=== PATIENT | female | born 1955 | race Caucasian/White ===

== ENCOUNTER 2020-02-26 10:26 | Outpatient (CLI) | payer MEDICARE, SELFPAY ==
--- NOTE | ~2020-02-26 | MM_ITS ---
EXAMINATION: MM screening [facility] BI w toney HISTORY: Screening mammogram TECHNIQUE: Craniocaudal and mediolateral oblique 3-D tomosynthesis images were obtained and synthetic 2-D images were generated. CAD analysis was submitted and interpreted. COMPARISON: 10/24/2018, 10/24/2017, 10/13/2016 BREAST PARENCHYMAL COMPOSITION: There are scattered areas of fibroglandular density. FINDINGS: There is no evidence of suspicious mass, calcification, or architectural distortion to sugg est malignancy in either breast. There has been no suspicious interval change. IMPRESSION: 1. No mammographic evidence of malignancy. 2. Recommend routine screening mammography in one year. BI-RADS Category 1: Negative Reviewed, dictated and finalized at location A.
== END 2020-02-26 10:27 | disposition home or self-care (01) ==
PROVIDERS: PCP Internal Medicine; Visit Provider Nurse Practitioner Obstetrics & Gynecology
DX: Z12.31 Encounter for screening mammogram for malignant neoplasm of breast (principal)
CPT/HCPCS: 77063; 77067

== ENCOUNTER 2020-07-10 11:27 | Outpatient (CLI) | payer MEDICARE, SELFPAY | END 2020-07-10 11:28 | disposition home or self-care (01) | LOC: ANHCOVIDVC 11:28 | PROVIDERS: PCP Internal Medicine | DX: Z23 Encounter for immunization (principal) | CPT/HCPCS: 0001A; 91300 ==

== ENCOUNTER 2020-07-31 11:32 | Outpatient (CLI) | payer MEDICARE, SELFPAY | END 2020-07-31 11:33 | disposition home or self-care (01) | LOC: ANHCOVIDVC 11:32 | PROVIDERS: PCP Internal Medicine | DX: Z23 Encounter for immunization (principal) | CPT/HCPCS: 0002A; 91300 ==

== ENCOUNTER 2021-04-01 09:31 | Outpatient (CLI) | payer MEDICARE, SELFPAY ==
--- NOTE | ~2021-04-01 | MM_ITS ---
EXAMINATION: MM screening [facility] BI w toney HISTORY: Screening mammogram TECHNIQUE: Craniocaudal and mediolateral oblique 3-D tomosynthesis images were obtained and synthetic 2-D images were generated. CAD analysis was submitted and interpreted. COMPARISON: Serial mammograms dating back to 10/24/2017 BREAST PARENCHYMAL COMPOSITION: The breasts are almost entirely fatty. FINDINGS: There is no evidence of suspicious mass, calcification, or architectural distortion to sugg est malignancy in either breast. There has been no suspicious interval change. IMPRESSION: 1. No mammographic evidence of malignancy. 2. Recommend routine screening mammography in one year. BI-RADS Category 1: Negative Reviewed, dictated and finalized at location A. 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
== END 2021-04-01 09:32 | disposition home or self-care (01) ==
LOC: ANHIMG 09:34
PROVIDERS: PCP Internal Medicine; Visit Provider Obstetrics & Gynecology
DX: Z12.31 Encounter for screening mammogram for malignant neoplasm of breast (principal)
CPT/HCPCS: 77063; 77067

== ENCOUNTER 2021-10-04 15:15 | Outpatient (RCR) | payer MEDICARE, SELFPAY ==
--- NOTE | 2021-09-01 16:52 | PTOPEVAL ---
PHYSICAL THERAPY EVALUATION AND PLAN OF CAR E Thank you for referring Gena Chung to [facility].? The patient is scheduled to be seen for therapy? 1-4x/MONTH for 2 MONTHS. Please review, sign, date and return this plan of care MIKY. I agree with and certify that the following plan of care is medically necessary. Referring Physician Date Attending Provider: Doni Meier MD Diagnosis female genital prolapse Subjective Information Gena is here for diagnosis Query Text:As Reported By Patient/ of gential prolapse. She Family states today that she was told she has a mild prolapse. She has been experiencing leakage of urine, especially when she sneezes or coughs. Tells me that she has been progressively drinking less and less water and she does drink mostly water. Has pain in the right hip/ groin region and has for some time. She was participating in physical therapy for the left knee and the right groin and hip. She would feel some relief and then the pain would come back. States that when her FINISH INSPECTOR did a pelvic floor examination there was more tension and tenderness on the right side of the pelvic floor and there was suspician that pelvic floor was invloved. Self Report Pain Assessment Right Groin Reported Pain Level 4 Pain Description Sharp,Tightness Pain Frequency Chronic,Intermittent Pain Score Pain Score 4: Self Report Interventions Used Interventions Used By Clinicians Exercise,Joint Mobilization, Manual Therapy Techniques Lower Extremity Range of Motion General Lower Extremity Range of Motion Gross Lower Extremity Range of Motion right hip: limited ROM Comments secondary pain; limited passive flexion and cannot bring down to neutral extension in supine; -10deg from neutral resting in external rotation Lower Extremity Muscle Strength Testing General Lower Extremity Strength Gross Lower Extremity Strength right hip strength limited due to pain with resistance; able to perform bridges and h
--- NOTE | 2021-10-25 12:25 | PCPTNOTE ---
Patient called & cancelled scheduled appointment this date due to having a migraine. She will call back when she feels better.
--- NOTE | 2021-11-15 12:39 | PCPTNOTE ---
PHYSICAL THERAPY DISCHARGE NOTE Attending Provider: Doni Meier MD Patient:Gena Chung Date of :1955 Gena was seen in physical therapy to address pelvic and groin pain. She demonstrates significant impairment to right hip ROM and strength and reports significant pain. Her gait pattern is significantly impaired. I referred her back to physician for further imaging of the hip after 3 sessions of no significant change in function or symptoms. Imaging noted advanced right hip OA. Gena expressed to me quite clearly that she is not interested in surgery at this time. Gena has not returned for any further treatments since 10/04/2021, therefore she will be discharged at this time. Patient?s initial visit was on 09/01/2021 and had a total of 3 visits. Thank you for referring this patient to [facility]. Please review, sign, date and return this discharge summary MIKY. I have been updated about the patient's current status and I agree with discharge from the above service at this time. Referring Physician Date
== END 2021-11-15 12:54 | disposition home or self-care (01) ==
LOC: ANHPT 15:15
PROVIDERS: PCP Internal Medicine; Referring Provider Obstetrics & Gynecology; Visit Provider Obstetrics & Gynecology
DX: N81.89 Other female genital prolapse (principal)
CPT/HCPCS: 97110; 97112; 97140; 97163; 97530

== ENCOUNTER 2021-10-07 15:28 | Outpatient (CLI) | payer MEDICARE, SELFPAY ==
--- NOTE | ~2021-10-07 | XR_ITS ---
XR lumbar spine 2-3V DATE: 10/07/2021 16:20 INDICATION: Back pain, inability to stand up straight TECHNIQUE: Standing AP, lateral and coned lateral lumbosacral views COMPARISON: None FINDINGS: There is mild rotatory levoscoliosis of the lumbar spine. No fracture or bone destruction is evident. The lumbar pedicles are intact. There is severe degenerative disc disease at L1-2 and L5-S1, moderately severe degenerative disc dise ase at L2-3 and mild degenerative disc disease at L3-4 and L4-5. There is degenerative change of the facet joints with associated grade 1 anterolisthesis at L4-5. The sacroiliac joints are unremarkable other than degenerative change. Asymmetric severe right hip osteoarthritis. IMPRESSION: Mild rotatory levoscoliosis of the lumbar spine Multilevel degenerative disc disease Grade 1 anterolisthesis at L4-5 due to degenerative change at the apophyseal joints Reviewed, dictated and finalized at location A. IMPRESSION: Mild rotatory levoscoliosis of the lumbar spine Multilevel degenerative disc disease Grade 1 anterolisthesis at L4-5 due to degenerative change at the apophyseal vianney ints
--- NOTE | ~2021-10-07 | XR_ITS ---
EXAMINATION: XR hip RT min 2V DATE: 10/07/2021 16:21 INDICATION: Right groin pain. TECHNIQUE: 2 views of right hip were obtained. COMPARISON: Right hip radiographs 06/05/2017 FINDINGS: Bone alignment is normal. No fracture. There is advanced right hip osteoarthritis. Osteitis pubis is noted. IMPRESSION: 1. Advanced right hip osteoarthritis. Reviewed, dictated and finalized at location A.
== END 2021-10-07 15:29 | disposition home or self-care (01) ==
PROVIDERS: PCP Internal Medicine; Visit Provider Clinical Nurse Specialist
DX: M25.551 Pain in right hip (principal); M54.9 Dorsalgia, unspecified; M41.86 Other forms of scoliosis, lumbar region; M51.36 Other intervertebral disc degeneration, lumbar region; M43.16 Spondylolisthesis, lumbar region; M16.11 Unilateral primary osteoarthritis, right hip
CPT/HCPCS: 72100; 73502

== ENCOUNTER 2021-11-12 11:18 | Outpatient (CLI) | payer MEDICARE, SELFPAY ==
[2021-11-12 19:38] LABS: Anion Gap 8 mmol/L (8-16); Blood Urea Nitrogen 17 mg/dL (7-17); Calcium 9.4 mg/dL (8.4-10.2); Carbon Dioxide 29 mmol/L (22-30); Chloride 103 mmol/L (98-107); Estimated Glomerular Filt Rate > 60; Glucose 98 mg/dL (65-110); Potassium 3.7 mmol/L (3.4-5.0); Sodium 140 mmol/L (137-145)
[2021-11-12 19:43] LABS: Vitamin D 25 Hydroxy 40.6 ng/mL
[2021-11-12 20:06] LABS: Hemoglobin A1C 5.3 % (<5.7)
== END 2021-11-12 11:19 | disposition home or self-care (01) ==
LOC: ANHGOSHLAB 11:24
PROVIDERS: PCP Internal Medicine; Visit Provider Clinical Nurse Specialist
DX: I47.1 Supraventricular tachycardia (principal); E16.2 Hypoglycemia, unspecified; F41.9 Anxiety disorder, unspecified; E55.9 Vitamin D deficiency, unspecified
CPT/HCPCS: 36415; 80048; 82306; 83036; 84443

== ENCOUNTER 2021-12-03 09:32 | Outpatient (CLI) | payer MEDICARE, SELFPAY ==
--- NOTE | ~2021-12-03 | DEXA_ITS ---
Bone Density Report Name: JUICE ALEJANDRE Age: 66 Sex: Female Ethnicity: White Date of : 1955 Indication: postmenopausal; screening for osteoporosis; height loss; Referring Provider: VICKI BRANDON Study: Bone densitometry was performed. Exam Date: December 03, 2021 Accession number: [id number] Bone Density: Region BMD T-score Z-score Classification AP Spine(L1, L2, L3) 1.296 2.5 4.4 Normal Femoral Neck (Left) 0.735 -1.0 0.6 Normal Total Hip (Left) 0.923 -0.2 1.2 Normal World Health Organization criteria for BMD impression classify patients as: Normal (T-score at or above -1.0), Osteopenia (T-score between -1.0 and -2.5), or Osteoporosis (T-score at or below -2.5). 10-year Fracture Risk: FRAX not reported because: All T-scores for Spine Total, Hip Total, Femoral Neck at or above -1.0 Previous Exams: Region Exam Age BMD T-score BMD Change BMD Change Date g/cm2 vs Baseline vs Previous AP Spine (L1-L3) 12/03/2021 66 1.296 2.5 -0.003 (-0.2%) 0.007 (0.6%) 09/07/2015 59 1.289 2.5 -0.010 (-0.8%) -0.010 (-0.8%) 08/28/2012 56 1.299 2.6 Total Hip(Left) 12/03/2021 66 0.923 -0.2 -0.057 (-5.8%) -0.092 (-9.0%) 09/07/2015 59 1.015 0.6 0.035 (3.6%)# 0.035 (3.6%)# 08/28/2012 56 0.980 0.3 *Denotes significance at 95% confidence level, LSC for AP Spine = 0.022 g/cm2, LSC for Total Hip = 0.027 g/cm2 # Denotes dissimilar scan types or analysis methods Clinical Information Provided by Patient: Patient maximum height was 67 Menopause Age: 54 Onset of menses at age 11 Number of children 3 Impression: The patient has normal bone mass. The BMD for the Total Hip(Left) decreased, changing by -9.0% since the last DXA exam. Discussion: BONE DENSITY IS ABOVE THE MINIMUM DESIRABLE LEVEL AT ALL SKELETAL SITES TESTED. This patient?s bone mineral density is above the minimum desirable level (T-score -1.0 or better) at all sites measured. The patient should follow a healthful lifestyle (good nutrition with adequate calcium and vitamin D, and appropriate weight-bearing exercise). Follow-Up: Consider repeating this study in 3 to 4 years to reassess this patient's status, or sooner if there is some new clinical indication. Reported by: DARRIN on 12/03/2021 10:07:00 AM. Reviewed, dictated and finalized at location [facility]afael [facility]
== END 2021-12-03 09:33 | disposition home or self-care (01) ==
LOC: ANHIMG 09:33
PROVIDERS: PCP Internal Medicine; Visit Provider Clinical Nurse Specialist
DX: Z78.0 Asymptomatic menopausal state (principal)
CPT/HCPCS: 77080

== ENCOUNTER 2022-04-01 10:00 | Outpatient (RCR) | payer MEDICARE, SELFPAY ==
--- NOTE | 2022-01-07 15:21 | PTOPEVAL1 ---
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 She states her pelvis is so far forward now that she cannot stand up straight or reach her feet. She states prior to this she was able to walk miles and dance. She states she also has pain in her L knee and today her L foot. Pt states her pain moves, from her back, R hip, or R lower leg. Reported Pain Level Pain Score 1: Self Report Assessment PT Clinical Summary Gena presents to therapy today for her initial evaluation with a diagnosis of R hip pain. Today she demonstrates and presents viable pain during ambulation. In supine she is unable to extend her R hip to neutral and has to main ~20 degs of hip flexion, she is also limited to ~70 deg of hip flexion before she has to stop d/t pain. Muscle energy techniques were attempted today to aim to relieve pressure on the hip and SIJ. Gait and stairs ambulation was not assessed this day d/t high reports of pain. Skilled physical therapy services are indicated to address deficits noted above, to manage pain, to improve ROM, and to return to baseline function. Plan of Care Interventions Electrical Stimulation,Gait Training,Hot Pack/Cold Pack,Manual Therapy,Neuro Re-education,Patient/ Caregiver Educati,Therapeutic Activities, Therapeutic Exercise,Ultrasound PT Services Indicated Yes Treatment Frequency and 2x/wk for 4 wks or until goals are met Duration These treatments will address the objective and functional deficits as defined above. The patient will be advanced safely and appropriately in order for the patient to progress towards his/her prior level of function. Additional exercises will be introduced and as well as a comprehensive home exercise program upon discharge, if needed, ?to ensure carryover of functional gains achieved in the clinic. This treatment plan has been reviewed and agreement upon by the patient.
--- NOTE | 2022-01-14 11:59 | PCPTNOTE ---
Patient called to cancel due to being sick.
--- NOTE | 2022-02-04 11:41 | PTOPPROG ---
Assessment and note entered by Cuong Gaffney, PT, DPT Evaluation Information Assessment Status Progress Diagnosis R hip pain Onset 1 year Subjective Information Pt states overall she thinks things are improving. She states she knows her hip became arthritic over years and knows it will take years of therapy to fix it. Pt states on she was able to stand longer at work, with pain, but it was bearable. She states getting in/out of her car she must have moved wrong because it has hurt since. She states she still in not sleeping through the night. Pt states 1-2% improvement. Assessment PT Clinical Summary Gena presents to therapy today for her progress report following 7 visits of therapy to treat her R hip pain. Today she demonstrates improvements in both her passive hip flexion and extension but is still not within functional ranges. She continues to ambulate with a flexed posture d/t lack of hip extension and a R sided antalgic pattern. She requires increased time to complete the TUG and 5xSTS placing her at an increased risk of falls. She is also limited in how long she can sleep, sit , or stand d/t pain. Continuation of skilled physical therapy services are indicated to address the deficits noted above, to manage pain, to improve function, and to limit overall impairment. Plan of Care Interventions Electrical Stimulation,Gait Training,Hot Pack/Cold Pack,Manual Therapy,Neuro Re-education,Patient/ Caregiver Educati,Therapeutic Activities, Therapeutic Exercise,Ultrasound PT Services Indicated Yes Treatment Frequency and continue 2x/wk for 5 wks Duration These treatments will address the objective and functional deficits as defined above. The patient will be advanced safely and appropriately in order for the patient to progress towards his/her prior level of function. Additional exercises will be introduced and as well as a comprehensive home exercise program upon discharge, if needed, ?to ensure carryover of functional gains achieved in the clinic. This treatment plan has been reviewed and agreement upon by the patient.
--- NOTE | 2022-03-08 15:10 | PCPTNOTE ---
Patient called to cancel this date due to being sick.
--- NOTE | 2022-03-11 11:26 | PTOPPROG ---
Assessment and note entered by Cuong Gaffney, PT, DPT Evaluation Information Assessment Status Progress Diagnosis R hip pain and low back pain Onset 1 year Subjective Information Pt states her pain is a 1-2/10 today. She states she got new shoes and this has helped a little bit with the pressure on her back. Pt states she stood for a long time yesterday, she states her L foot started to hurt because she was putting so much weight on it. She states it is still really painful to put all her weight on her R hip. She states the longer she walks the worse her hip pain is. Assessment PT Clinical Summary Gena presents to therapy today for her progress report following 16 visits of skilled therapy to treat her diagnosis of R hip pain. Progress with therapy continues to be limited by pain and poor tolerance with general movement. Pt report increased LE numbness and pain with posterior pelvic tilts. She continues to lack the ability to stand upright with an erect posture due to pain and immobility of her R hip. It was recommended that patient follow up with her referring provider and possibly an orthopedic d/t her minimal progress with therapy. Continuation of skilled therapy is indicated to continue pain management and to help minimize compensations. Plan of Care Interventions Electrical Stimulation,Gait Training,Hot Pack/Cold Pack,Manual Therapy,Neuro Re-education,Patient/ Caregiver Educati,Therapeutic Activities, Therapeutic Exercise,Ultrasound PT Services Indicated Yes Treatment Frequency and 1x/wk for 6 wks Duration These treatments will address the objective and functional deficits as defined above. The patient will be advanced safely and appropriately in order for the patient to progress towards his/her prior level of function. Additional exercises will be introduced and as well as a comprehensive home exercise program upon discharge, if needed, ?to ensure carryover of functional gains achieved in the clinic. This treatment plan has been reviewed and agreement upon by the patient.
--- NOTE | 2022-03-15 09:12 | PCPTNOTE ---
Patient called and left a voicemail canceling appointment for this date due to weather.
--- NOTE | 2022-04-05 09:23 | PCPTNOTE ---
This treatment is being continued on visit number [id number]. Please see documentation on both accounts to view progress. Completed interventions, outcomes, and problems have been marked as Inactive to facilitate the copying of the Care plan routine for recurring accounts.
== END 2022-04-04 13:15 | disposition home or self-care (01) ==
LOC: ANHGOSHPT 10:00
PROVIDERS: PCP Internal Medicine; Visit Provider Clinical Nurse Specialist
DX: M54.9 Dorsalgia, unspecified (principal); M95.5 Acquired deformity of pelvis
CPT/HCPCS: 97110; 97112; 97116; 97140; 97161; 97530

== ENCOUNTER 2022-04-28 15:09 | Outpatient (RCR) | payer MEDICARE, SELFPAY ==
--- NOTE | 2022-04-05 09:24 | PCPTNOTE ---
The treatment documented on this account is a continuation of the treatment documented on visit number [id number]. Please see documentation on both accounts to view progress. The Plan of Care has been transitioned and updated within the new V#. I have addressed and agree with the discipline specific Problems, Interventions, and Goals for the current certification period. Completed interventions, outcomes, and problems have been marked as Inactive to facilitate the copying of the Care plan routine for recurring accounts.
--- NOTE | 2022-04-22 09:53 | PCPTNOTE ---
Patient called & cancelled scheduled appointment this date due to inclement weather. She has been rescheduled.
--- NOTE | 2022-04-28 12:33 | PTOPDC ---
Assessment and note entered by Cuong Gaffney, PT, DPT Evaluation Information Assessment Status Discharge Diagnosis R hip OA Onset chronic Subjective Information Pt states today and for the last few days she does not hurt much. She states she has been moving through exercise, not completing the same ones daily. Pt states she called her doctor and her provider said to keep doing therapy. Reported Pain Level Pain Score 1: Self Report Assessment PT Clinical Summary Gena presents to therapy today for her progress report following 20 visits of therapy to treat her R hip OA. She has made minimal progress throughout therapy. She has increased her active hip flexion from 70 deg to 76 deg, and still continues to lack 15 deg from neutral hip extension. She also has ~5 deg of passive hip abduction and adduction. She reports less pain with daily mobility and can ambulate at a mildly increased gait speed but continues to have significant gait deviations. Gena will be discharged at this time d/t poor therapy progression. It was recommended that she follow up with her referring provider and an orthopedic doctor prior to getting new orders to return to therapy. Plan of Care PT Services Indicated No Treatment Frequency and to be discharged Duration
== END 2022-04-28 15:52 | disposition home or self-care (01) ==
LOC: ANHGOSHPT 15:09
PROVIDERS: PCP Internal Medicine; Visit Provider Clinical Nurse Specialist
DX: M54.9 Dorsalgia, unspecified (principal); M95.5 Acquired deformity of pelvis
CPT/HCPCS: 97110; 97140; 97530; 99199

== ENCOUNTER 2022-07-29 08:41 | Outpatient (CLI) | payer MEDICARE, SELFPAY ==
--- NOTE | ~2022-07-29 | MM_ITS ---
EXAMINATION: MM screening [facility] BI w toney HISTORY: Screening TECHNIQUE: Craniocaudal and mediolateral oblique 3-D tomosynthesis images were obtained and synthetic 2-D images were generated. CAD analysis was submitted and interpreted. COMPARISON: Comparison to multiple prior studies sequentially, with oldest reviewed study dated 12/2015. BREAST PARENCHYMAL COMPOSITION: There are scattered areas of fibroglandular density. FINDINGS: There is no evidence of suspicious mass, calcification, or architectural distortion to sugg est malignancy in either breast. There has been no suspicious interval change. IMPRESSION: 1. No mammographic evidence of malignancy. 2. Recommend routine screening mammography in one year. BI-RADS Category 1: Negative Reviewed, dictated and finalized at location A.
== END 2022-07-29 08:42 | disposition home or self-care (01) ==
LOC: ANHIMG 08:44
PROVIDERS: PCP Internal Medicine; Visit Provider Clinical Nurse Specialist
DX: Z12.31 Encounter for screening mammogram for malignant neoplasm of breast (principal)
CPT/HCPCS: 77063; 77067

== ENCOUNTER 2023-08-11 08:40 | Outpatient (CLI) | payer MEDICARE, SELFPAY ==
--- NOTE | ~2023-08-11 | MM_ITS ---
EXAMINATION: MM screening [facility] BI w toney HISTORY: Screening TECHNIQUE: Craniocaudal and mediolateral oblique 3-D tomosynthesis images were obtained and synthetic 2-D images were generated. CAD analysis was submitted and interpreted. COMPARISON: Comparison to multiple prior studies sequentially, with oldest reviewed study dated 06/2020. BREAST PARENCHYMAL COMPOSITION: Not dense: There are scattered areas of fibroglandular density. FINDINGS: There is no evidence of suspicious mass, calcification, or architectural distortion to sugg est malignancy in either breast. There has been no suspicious interval change. IMPRESSION: 1. No mammographic evidence of malignancy. 2. Recommend routine screening mammography in one year. BI-RADS Category 1: Negative Reviewed, dictated and finalized at location A.
== END 2023-08-11 08:41 | disposition home or self-care (01) ==
LOC: ANHIMG 08:42
PROVIDERS: PCP Internal Medicine; Visit Provider Nurse Practitioner Family
DX: Z12.31 Encounter for screening mammogram for malignant neoplasm of breast (principal)
CPT/HCPCS: 77063; 77067

== ENCOUNTER 2023-10-04 16:19 | Outpatient (CLI) | payer MEDICARE, SELFPAY ==
--- NOTE | ~2023-10-04 | XR_ITS ---
XR hip RT min 2V Ordering provider: Mariusz Garcia, DO History: . Acute rt hip pain . Comparison: October 07, 2021 FINDINGS: BONES: Sclerotic line is seen in the neck of the femur which may represent a fracture. CT evaluation advised. HIP JOINT SPACES: Severe narrowing of the joint space. SACROILIAC JOINT SPACES/LUMBAR SPINE: Right sacroiliitis seen. . SOFT TISSUES: Normal. IMPRESSION: Sclerotic line is seen in the neck of the femur which may represent a fracture. CT evaluation advised . Severe osteoarthritic changes. Reviewed, dictated and finalized at location A. IMPRESSION: Sclerotic line is seen in the neck of the femur which may represent a fracture. CT evaluation advised. Severe osteoarthritic changes.
== END 2023-10-04 16:20 | disposition home or self-care (01) ==
LOC: ANHIMG 16:24
PROVIDERS: PCP Internal Medicine; Visit Provider Orthopaedic Surgery
DX: M25.551 Pain in right hip (principal)
CPT/HCPCS: 73502

== ENCOUNTER 2024-08-16 08:06 | Outpatient (CLI) | payer MEDICARE, SELFPAY ==
--- NOTE | ~2024-08-16 | DEXA_ITS ---
Bone Density Report Name: JUICE ALEJANDRE Age: 68 Sex: Female Ethnicity: White Date of : 1955 Indication: postmenopausal; screening for osteoporosis; Referring Provider: MARYJO LA Study: Bone densitometry was performed. Exam Date: August 16, 2024 Accession number: [id number] Bone Density: Region BMD T-score Z-score Classification AP Spine(L1-L4) 1.275 2.1 4.2 Normal Femoral Neck (Left) 0.706 -1.3 0.5 Osteopenia Total Hip (Left) 0.862 -0.7 0.8 Normal World Health Organization criteria for BMD impression classify patients as: Normal (T-score at or above -1.0), Osteopenia (T-score between -1.0 and -2.5), or Osteoporosis (T-score at or below -2.5). 10-year Fracture Risk(1): Major Osteoporotic Fracture 9.3% Hip Fracture 1.1% Reported Risk Factors: [place] (), Neck BMD=0.706, BMI=27.8 (1) FRAX(R) Version 3.08. Fracture probability calculated for an untreated patient. Fracture probability may be lower if the patient has received treatment. Previous Exams: Region Exam Age BMD T-score BMD Change BMD Change Date g/cm2 vs Baseline vs Previous AP Spine (L1-L4) 08/16/2024 68 1.275 2.1 -0.120 (-8.6%) -0.120 (-8.6%) 08/28/2012 56 1.395 3.2 Total Hip(Left) 08/16/2024 68 0.862 -0.7 -0.118 (-12.0% -0.061 (-6.6%) 12/03/2021 66 0.923 -0.2 -0.057 (-5.8%) -0.092 (-9.0%) 09/07/2015 59 1.015 0.6 0.035 (3.6%)# 0.035 (3.6%)# 08/28/2012 56 0.980 0.3 *Denotes significance at 95% confidence level, LSC for AP Spine = 0.022 g/cm2, LSC for Total Hip = 0.027 g/cm2 # Denotes dissimilar scan types or analysis methods Clinical Information Provided by Patient: Has used the following medications: Vitamin D Patient maximum height was 65 Menopause Age: 54 No regular weight bearing exercise Onset of menses at age 11 Number of children 3 Impression: The patient has low bone mass, based on the Left Femoral Neck T-score. The patient has an estimated ten-year risk of hip fracture of 1.1% and an estimated ten-year risk of major fracture of 9.3%, based on the WHO FRAX algorithm. The BMD for the Total Hip(Left) decreased, changing by -6.6% since the last DXA exam. Discussion: BONE DENSITY IS LOW AT ONE OR MORE SKELETAL SITES. This patient's lowest T-score is low at one or more skeletal sites. It meets the World Health Organization's (WHO) criteria for ?low bone mass? (T-score between -1.0 and -2.5). The patient's 10-year risk of fracture as calculated by FRAX is less than the threshold where pharmacological therapy is recommended by the National Osteoporosis Foundation (NOF). However, all treatment decisions require clinical judgment and consideration of individual patient factors, including patient preferences, comorbidities, previous drug use, risk factors not captured in the FRAX model (e.g., frailty, falls, vitamin D deficiency, increased bone turnover, interval significant decline in bone density) and possible under or overestimation of fracture risk by FRAX. The patient should follow a healthful lifestyle (good nutrition with adequate calcium and vitamin D, and appropriate weight-bearing exercise). Follow-Up: Consider repeating this study in 2 years to reassess this patient's status, or sooner if there is some new clinical indication. Reported by: DARRIN on 08/16/2024 8:45:00 AM. Reviewed, dictated and finalized at location ARafael ROBB
--- NOTE | ~2024-08-16 | MM_ITS ---
EXAMINATION: MM screening ambar BI w toney HISTORY: Screening TECHNIQUE: Craniocaudal and mediolateral oblique 3-D tomosynthesis images were obtained and synthetic 2-D images were generated. CAD analysis was submitted and interpreted. COMPARISON: Comparison to multiple prior studies sequentially, with oldest reviewed study dated 10/24. BREAST PARENCHYMAL COMPOSITION: Not dense: There are scattered areas of fibroglandular density. FINDINGS: There is no evidence of suspicious mass, calcification, or architectural distortion to sugg est malignancy in either breast. There has been no suspicious interval change. IMPRESSION: 1. No mammographic evidence of malignancy. 2. Recommend routine screening mammography in one year. BI-RADS Category 1: Negative Reviewed, dictated and finalized at location B.
--- OUTSIDE RECORDS SUMMARY | 2024-08-16 08:16 | XMS_ITS | Encounter Summary ---
Author Organization [facility] Address [facility] [place] [address] Care Team Providers Care Director Work Name Role Phone Jay Durham MD Primary Care Provider [phone] Encounter Details Date Type Department Care Team (Latest Contact Info) Description 06/17/[address] [facility] - [place] [address] [address] [place] [address] Jay Durham MD [address] [place] [address] [address] [place] [address] possible x-ray please Social History Tobacco Use Types Packs/Day Years Used Date Smoking Tobacco: Never Smokeless Tobacco: Never Comments:Counseled by Dr. Jennie altman Alcohol Use Standard Drinks/Week Comments Never 0 (1 standard drink = 0.6 oz pur e alcohol) OASIS D0700: Social Isolation Answer Da te Recorded Frequency of experiencing loneliness or isolatio n Never 12/20/2023 OASIS A1250: Transportation Answer Date Recorded Lack of Transportation (Medical) No 12/20/2023 Lack of Transportation (Non-Medical) No 12/20/2023 Patient Unable or Declines to Respond No 12/20/2023 OASIS B1300: Health Literacy Answer Oziel e Recorded Frequency of needing help to read materials from doctor or pharmacy Rarely 12/20/2023 PHQ-2 Answer Date Recorded Patient Health Questionnaire-2 Score 0 09/20/2023 Comments No Sex and Gender Information Value Date Recorded Sex Assigned at Female 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 Answer Date of Assessment Author Status No 11/28/2023 6:00 PM ALANT Lindsay Mulligan RN Active * Do you have serious difficulty walking or climbing stairs? Answer Date of Assessment Author Status Yes 11/28/2023 6:00 PM ALANT Lindsay Mulligan RN Active * Do you have difficulty dressing or bathing? Answer Date of Assessment Author Status Yes 11/28/2023 6:00 PM ALANT Lindsay Mulligan RN Active * Because of a physical, mental, or emotional condition, do you have difficulty doing errands alone such as visiting a doctor's office or shopping? Answer Date of Assessment Author Status Yes 11/28/2023 6:00 PM ALANT Lindsay Mulligan RN Active documented as of this encounter Mental Status * Because of a physical, mental, or emotional condition, do you have serious difficulty concentrating, remembering, or making decisions? Answer Entry Date Author Status No 11/28/2023 6:00 PM Lindsay Sky RN Active documented in this encounter Plan of Treatment Upcoming Encounters Date Type Department Care Team (Late st Contact Info) Description 09/06/2024 10:20 AM CDT Office Visit [facility] [place] [address] [address] [place] [address] Jay Durham MD [address] [place] [id number] 10/07/2024 3:20 PM CDT Office Visit [facility] Orthopedic Surgery - [place] [address] [address] [place] [address] [place] [address] [place] [address] documented as of this encounter Visit Diagnoses Not on filedocumented in this encounter Care Teams Director Work Relationship Specialty Start Date End Date Jay Durham MD [address] [facility] [address] [place] [address] PCP - General INTERNAL MEDICINE 03/16/23 documented as of this encounter
--- OUTSIDE RECORDS SUMMARY | 2024-08-16 08:16 | XMS_ITS | Encounter Summary ---
Author Organization [facility] - [facility] Address [address] [place] [address] Care Team Providers Care Harpsichord Maker Name Role Phone Jay Durham MD Primary Care Provider [phone] Encounter Details Date Type Department Care Team (Latest Contact Info) Description 11/20/2023 MyChart Message Enc [facility] Medical Group Multispecialty Care - [place] [address] [address] [place], [place] [id number] Jay Durham MD [address] [place] [address] EKG , Dr. Chang and [facility] Social History Tobacco Use Types Packs/Day Years Used Date Smoking Tobacco: Never Smokeless Tobacco: Never Comments:Counseled by Dr. Schneider ate Alcohol Use Standard Drinks/Week Comments Never 0 (1 standard drink = 0.6 oz pur e alcohol) PHQ-2 Answer Date Recorded Patient Health Questionnaire-2 Score 0 09/20/2023 Comments No Sex and Gender Information Value Date Recorded Sex Assigned at Female 06/28/2024 12:07 PM MULTILITH OPERATOR Legal Sex Female 5:26 PM CDT Gender Identity Not on file Sexual Orientation Not on file documented as of this encounter Plan of Treatment Upcoming Encounters Date Type Department Care Team (Late st Contact Info) Description 09/06/2024 10:20 AM CDT Office Visit [facility] Multispecialty Care - [place] [address] [address] [place] [address] Jay Durham MD [address] [place] [address] 10/07/2024 3:20 PM CDT Office Visit [facility] Orthopedic Surgery - [place] [address] [place], [place] [id number] [place] [address] [place] [address] documented as of this encounter Visit Diagnoses Not on filedocumented in this encounter Care Teams Harpsichord Maker Relationship Specialty Start Date End Date Jay Durham MD [address] [place] [address] PCP - General INTERNAL MEDICINE 03/16/23 documented as of this encounter
--- OUTSIDE RECORDS SUMMARY | 2024-08-16 08:16 | XMS_ITS | Encounter Summary ---
Author Organization [facility] Address [address] [place] [address] Care Team Providers Care Lead Manufacturing Technician Name Role Phone Jay Durham MD Primary Care Provider [phone] Encounter Details Date Type Department Care Team (Late Contact Info) Description 11/23/2023 Cumulocityhart Message Enc [facility] Orthopedic Surgery[address] [address] Mychart, [facility] Provider Cardiac Clearance Social History Tobacco Use Types Packs/Day Years Used Date Smoking Tobacco: Never Smokeless Tobacco: Never Comments:Counseled by Dr. 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 Legal Sex Female 5:26 PM CDT Gender Identity Not on file Sexual Orientation Not on file documented as of this encounter Plan of Treatment Upcoming Encounters Date Type Department Care Team (Late Contact Info) Description 09/06/2024 10:20 AM CDT [facility] [address] [place] [address] Jay Durham MD [address] [facility] [address] [place] [address] 10/07/2024 3:20 PM CDT Office Visit [facility] Medical Group Orthopedic Surgery - [place] [address] [place], [place] [id number] [place] [address] [place] [address] documented as of this encounter Visit Diagnoses Not on filedocumented in this encounter Care Teams Lead Manufacturing Technician Relationship Specialty Start Date End Date Jay Durham MD [address] [place] [address] PCP - General INTERNAL MEDICINE 03/16/23 documented as of this encounter
--- OUTSIDE RECORDS SUMMARY | 2024-08-16 08:16 | XMS_ITS | Clinical Summary ---
Author Organization [facility] [employer] Address [address] [place] [address] Care Team Providers Care Professor Of Graphic Design Name Role Phone Yuval Tenorio MD Primary Care Provider [phone] Source Comments [facility] [employer],non-[facility] Affiliates and Associated Physician Practices is amultiple site organization consisting of ambulatory clinics and hospital sitesin [place], [place], [place] and [place]. This disclosure is being madepursuant to the Care Everywhere program and may not contain all information available regarding this patient. Last updated 18.[facility] [employer] Allergies Active Allergy Reactions Criticality Noted Date Comments Amoxicillin Rash Medium 04/06/2017 As child Metoprolol Other 07/28/2017 Penicillins Urticaria Medium 07/28/2017 Prednisone Swelling 07/28/2017 Medications * Be aware that medications may not be up to date on this document. Alwaysverify current medications with the patient. MULTIPLE VITAMIN PO Active verapamil SR 24hr (VERELAN) 120 MG capsule Take 120 mg by mouth once daily Active Active Problems Problem Noted Date Diagnosed Date Tachycardia 09/03/2018 Family History Medical History Relation Name Comments CAD (Coronary Artery Disease) Father Cancer - Ovarian Mother Relation Name Status Comments Father Mother Social History Tobacco Use Types Packs/Day Years Used Date Smoking Tobacco: Never Smokeless Tobacco: Never Comments No Sex and Gender Information Value Date Recorded Sex Assigned at Not on file Legal Sex Female 4:20 PM CDT Gender Identity Not on file Sexual Orientation Not on file Last Filed Vital Signs Vital Sign Reading Time Taken Comments Blood Pressure 142/88 09/03/2018 10:47 AM CDT Pulse 88 09/03/2018 10:47 AM CDT Temperature 36.8 C (98.3 F) 09/03/2018 10:47 AM CDT Respiratory Rate 16 09/03/2018 10:47 AM CDT Oxygen Saturation 99% 09/03/2018 10:47 AM CDT Inhaled Oxygen Concentration - - Weight 81.6 kg (180 lb) 09/03/2018 10:47 AM CDT Height 167.6 cm (5' 6 ) 09/03/2018 10:47 AM CDT Body Mass Index 29.05 09/03/2018 10:47 AM CDT Plan of Treatment Health Maintenance Due Date Last Done Comments BONE DENSITY TESTING 1954 COLOGUARD (AGES 45-75) - COL ON CA SCREENING 1954 COLON MONITORING 1954 COLONOSCOPY - COLON CA SCREENING 1954 CT COLONOGRAPHY - COLON CA SCREENING 1954 Colorectal Cancer Screening 1954 FIT - COLON CA SCREENING 1954 FLEX SIG - COLON CA SCREENING 1954 LIPID TESTING 1954 MAMMOGRAM 1954 HEPATITIS C SCREENING 10/13/1972 DTAP/TDAP/TD VACCINES (1 - Tdap) 1973 PNEUMOCOCCAL VACCINE 50+ (1 of 1 - PCV) 2004 ZOSTER VACCINE (1 of 2) 2004 SCREENING FOR DIABETES 07/28/2017 COVID-19 VACCINE ( - 2023-2 5 season) 2023 DEPRESSION SCREENING 05/01/2024 INFLUENZA VACCINE (Season Ended) 2024 Respiratory Syncytial Virus (RSV) Vaccine Pt: or over 60 yrs (1 - 1-dose 75+ series) 2029 HEPATITIS B VACCINE Aged Out No longe r eligible based on patient's age to complete this topic HIB VACCINE Aged Out No longer eligi ble based on patient's age to complete this topic HPV VACCINE Aged Out No longer eligi ble based on patient's age to complete this topic MENINGOCOCCAL (Group B) VACC INE SHARED DECISION-MAKING Aged Out No longer eligibl e based on patient's age to complete this topic MENINGOCOCCAL GROUPS A/C/Y/W VACCINE Aged Out No longer eligible b ased on patient's age to complete this topic Insurance M[employer]IPLAN THAI Metcalf [id number] Care Teams Professor Of Graphic Design Relationship Specialty Start Date End Date Yuval Tenorio MD [facility] [place] [address] PCP - General Family Medicine 10/03/16
--- OUTSIDE RECORDS SUMMARY | 2024-08-16 08:16 | XMS_ITS | Data Portability ---
Author Organization ID - [facility] [place] Address [address] [place] [address] Assessment Encounter Date Assessment Date Assessment LastModified by Organization Details LastModified Time 02/26/2020 02/26/2020 Annual gynecological exam performed. Patient will come back in a year unless there are new symptoms. [email or web address] Not available 02/26/2020 10:25:38 Plan of Treatment Reminders Order Date Submit Date Provider Last Modified By Organization Details Last Modified Time Details Appointments None recorded. Lab None recorded. Referral None recorded. Procedures None recorded. Surgeries None recorded. Imaging DEXA, axial skeleton + vertebral fracture assessment 2019 020 [facility], [address], [place], [address], 1 05:01:09 Medication Orders None recorded. Patient TargetsNo targets recorded. Patient Instructions Encounter Date Encounter Id Patient Instructions Last Modified By Organization Details Last Modified Time 02/26/2020 [id number] [email or web address] Not available 11:37:26 Reason for Referral None Reported. Results Created Date Observation Date Name Description Value Unit Range Abnormal Flag Note LastModifiedBy Organization Detail LastModifiedTime 02/26/20 20 02/28/2020 HPV DNA, high- risk HPV high risk NOT DETECT ED normal The human papil lomav irus (HPV) High Risk Paul sanford is an FDA-a pprov ed in-vi tro ampli fied nucle ic acid test for the quali tativ e detec tion of E6/E7 viral mRNA. Resul warren dolan be corre lated with patie nt prese ntati on, histo ry, cervi scottie cytol ogy and other clini scottie and labor atory findi ngs. See https ://ww [employer]/s ites/ defau lt/fi les/2 018-0 3/AW- 48710 _002_ 01.pd f for teresastevo janer deonte n. Test perfo rmed by [facility] [place], d/[email or web address], [address], [place] [address] , Hussein Mchugh ra, DO, Labor atorSimpliVity Dire tor. Not Available [facility] ([facility]) [address], [place], [address], 02/28/2020 17:30:12 02/26/20 20 03/04/2020 pap, LB Pap test thin prep Negati ve for Intrae pithel ial Lesion or Malign supriya normal ACCES NEIL #: [id number] [facility] e: Cervi scottie/E ndoce rvica l LMP: 05/01 Date Taken : 02/25 Speci men Type: ThinP rep Vial Date Repor gustabo: 2019 Clini scottie Data: Cytot ech: Kaitl in MRafael Burk , CT( CP) Date Repor gustabo: 2019 Speci men Adequ acy: Satis facto ry for evalu ation Gener al Categ oriza tion: NEGAT LEO FOR INTRA EPITH ELIAL LESIO N OR MALIG CONNER Inter preta tion/ Resul t: Atrop hy Testi ng recom menda tions sugge st a patie nt betwe en the ages of 30 and 65 have an HPV test perfo rmed regar dless of Pap resul t. Consi rudy patie nt histo ry befor e addin g HPV testi ng. End of Repor t Techn ical servi haja provi ded by [facility], [facility], [address] [place] [address] Amish Rae MD, Labor atorSimpliVity Dire tor. Case revie wed and diagn osis rende red at [facility], d/b/a Anitha [facility]eiro, [address] [place] [address] Amish Rae MD, Labor atory Dire tor. CONFI DENTI AL Not Available [facility] ([facility]) [address], [place], [address], 03/04/2020 11:13:04 02/26/20 20 02/26/2020 MAMMO , scree barney, bilat eral No observ ation record ed. [facility] [address], [place], [address], 04/08/2020 14:49:03 Result Notes None recorded. Problems Name Problem SNOMED Code Status Onset Date Resolution Date Notes Provider Name and Address Organization Details Recorded Time SNOMED CT Concept Active 2018 Encntr for obstetrics gyn exam (general) (routine) w/o abn findings; Recorded Elsewhere : No Locati on: [facility] So urce: EHR Chron ic: N Practic e ID: 0001 Bill able Time: 10:00:00 AM Not Available [facility] 0 17:41:24 Specializ ed medical examinati on Active 2012 Gynecolog ical Examinati on;Record ed Elsewhere : No Locati on: [facility] So urce: EHR Chron ic: N Practic e ID: 0001 Bill able Time: 09:30:00 AM Not Available [facility] 0 17:41:[address] Concept Active 2015 Encntr for general adult medical exam w/o abnormal findings; Recorded Elsewhere : No Locati on: [facility] So urce: EHR Chron ic: N Practic e ID: 0001 Bill able Time: 08:30:00 AM Not Available [facility] 0 17:41:24 Hypertens leo disorder 01129108 Active 2015 HTN;Recor ded Elsewhere : No Locati on: [facility] So urce: EHR Chron ic: N Practic e ID: 0001 Bill able Time: 08:30:00 AM Not Available [facility] 0 17:41:24 Screening for malignant neoplasm of rectum Active 2012 Screening for malignant neoplasms of the rectum;Re corded Elsewhere : No Locati on: [facility] So urce: EHR Chron ic: N Practic e ID: 0001 Bill able Time: 09:30:00 AM Not Available [facility] 0 17:41:24 Atypical glandular cells on cervical Papanicol aou smear 364547905 Active 2014 Abnormal glandular Papanicol aou smear of cervix;Re corded Elsewhere : No Locati on: [facility] So urce: EHR Chron ic: N Practic e ID: 0001 Bill able Time: 09:30:00 AM Not Available [facility] 0 17:41:24 Acute vaginitis 22640247 Active 2018 Acute vulvovagi nitis;Rec orded Elsewhere : No Locati on: [facility] So urce: EHR Chron ic: N Practic e ID: 0001 Bill able Time: 10:00:00 AM Not Available [facility] 0 17:41:24 Adult health examinati on Active 2014 ROUTINE MEDICAL EXAM;Travis rded Elsewhere : No Locati on: [facility] So urce: EHR Chron ic: N Practic e ID: 0001 Bill able Time: 09:30:00 AM Not Available [facility] 0 17:41:24 Pain in right hip joint 02823166519 9102 Active 2017 Pain in rt hip;Recor ded Elsewhere : No Locati on: [facility] So urce: EHR Chron ic: N Practic e ID: 0001 Bill able Time: 10:30:00 AM Not Available [facility] 0 17:41:24 Screening for malignant neoplasm of cervix Active 2012 Screening for malignant neoplasms of the cervix;Re corded Elsewhere : No Locati on: [facility] So urce: EHR Chron ic: N Practic e ID: 0001 Bill able Time: 09:30:00 AM Not Available [facility] 0 17:41:24 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 Procedures Surgical History None recorded. Imaging Results Imaging Date Name Status LastModified by Organiz ation Details LastModified Time 02/26/2020 MAMMO, screening, bilateral completed [facility] [address], [place], [address], 04/08/2020 14:49:03 Procedure Notes None recorded. Medical Equipment None Reported. Allergies Allergen ID Allergen Name Allergen Category Reaction Reaction Severity Criticality Documentation Date Start Date Code Code System Note Provider Name and Address Organization Details Recorded Time 2524 latex environme nt,medica tion Not available Not available Not available 02/26/2020 62590 91 RxNorm Marycarmen Stephens saurabh, [facility] 0 10:25:53 2526 Product containin g penicilli n (product) medicatio n Not available Not available Not available 02/26/2020 09614 8001 SNOMED Marycarmen Stephens saurabh, [facility] 0 10:25:59 2527 prednison e medicatio n Not available Not available Not available 02/26/2020 8640 RxNorm [facility] 10:26:07 2528 topiramat e medicatio n Not available Not available Not available 02/26/2020 77753 RxNorm Marycarmen Stephens saurabh, [facility] 0 10:26:13 Medications Name Sig Start Date Stop Date Status Note LastModified by Organization Details LastModified Time verapamil 40 mg tablet take 1 tablet by oral route 3 times every day 2018 active Prescrib ed Elsewher e: Yes Loca tion: Maddy palomares [facility] Mary odify By: yamel Palomares ncounter DateTime : 10/25/19 19 10:00:00 AM Not Available Not Available Not Available Diflucan 150 mg tablet take 1 tablet by oral route once 2018 active Prescrib ed Elsewher e: No Locat ion: [facility] M odify By: katherinillhar tz Encou nter DateTime : 10/25/19 19 10:00:00 AM Not Available Not Available Not Available omeprazol e 10 mg capsule,d elayed release take 2 capsule by oral route every day before a meal active Prescrib ed Elsewher e: Yes Loca tion: Maddy palomares [facility] odify By: adrianna shirleyuntbrain DateTime : 09/07/19 16 08:30:00 AM Not Available Not Available Not Available diltiazem ER 120 mg capsule,2 4 hr,extend ed release take 1 capsule by oral route every day 10/24 completed Prescrib ed Elsewher e: Yes Loca tion: Maddy palomares [facility] odify By: yamel shirleyuntbrain DateTime : 09/05/19 15 09:30:00 AM Not Available Not Available Not Available verapamil ER (PM) 100 mg capsule 24hr pellet CT,ext.re lease take 1 capsule by oral route every day at bedtime 09/04 completed Prescrib ed Elsewher e: Yes Loca tion: Maddy palomares [facility] odify By: alla unger DateTime : 08/29/19 13 09:30:00 AM Not Available Not Available Not Available multivita min capsule take 1 capsule by oral route every day 10/24 completed Prescrib ed Elsewher e: Yes Loca tion: Maddy palomares [facility] odify By: yamel dakwins DateTime : 08/30/19 14 09:30:00 AM Not Available Not Available Not Available Tums 300 mg (as calcium carbonate 750 mg) chewable tablet 2018 active Prescrib ed Elsewher e: Yes [facility] By: yamel shirleyuntbrain DateTime : 10/25/19 19 10:00:00 AM Not Available Not Available Not Available Vitamin C 500 mg capsule,e xtended release 09/06 completed Prescrib ed Elsewher e: Yes Loca tion: Maddy palomares [facility] odify By: adrianna dawkins DateTime : 08/30/19 14 09:30:00 AM Not Available Not Available Not Available omeprazol e 02/25 completed Not Available Not Available Not Available verapamil active Not Available Not Sofia ilable Not Available Tums 02/25 completed Not Available Not Available Not Available Iquix 1.5 % eye drops instill 1 drop by ophthalm ic route every 4 hours into affected eye(s) while awake 08/29 completed Prescrib ed Elsewher e: Yes Loca tion: [facility] M odify By: alla unger DateTime : 08/29/19 13 09:30:00 AM Not Available Not Available Not Available Vitals Date Recorded Body height Body mass index (BMI) Body weight Systolic blood pressure Diastolic blood pressure Provider Name and Address Organization Details Last Updated DateTime 02/26/2020 165.1 cm 27 kg/m2 92546.96 g 180 mm[Hg] 100 mm[Hg] Marycarmen Stephens [facility] 0 10:36:21 Date Recorded Systolic blood pressure Diastolic blood pressure Provider Name and Address Organization Details Last Updated DateTime 02/26/2020 140 mm[Hg] 88 mm[Hg] Bree Rodríguez [facility] [address], [place], [address], [facility] 02/26/2020 12:27:34 Social History None recorded. Functional Status None recorded. Mental Status None recorded. Family History Relationship Description Onset Age of this Age Resolved Age Notes LastModified by Organization Details LastModified Time Mother Family history of malignant neoplasm of cervix uteri [email or web address] Not available 10:26:58 Father Heart disease [email or web address] Not available 2019 10:27:04 Notes:Father: Congenital hea rt disease Mother: Cervical cancer Medical History No medical history recorded. Gynecological History Statement/Question Response Current Control Method None Obstetrics History GPAL:G 0 P 0 0 0 0 Past Encounters Encounter ID Performer Location Encounter Start Date Encounter Closed Date Diagnosis/Indication Diagnosis SNOMED-CT Code Diagnosis ICD10 Code Diagnosis Note [id number] Bree Rodríguez [facility] [address] [address] 02/26/2020 10:23:51 02/26/2020 13:22:26 Gynecologic examination 96043316 Z01.419 Take Calcium with Vitamin D 12-1500mg daily. Do monthly self breast exams. It is advised to get annual flu shot in the fall and she could obtain at [facility] or [facility] care clinic. If you haven't received the Tdap vaccine in the last 10 years you should obtain one as well. Have mammogram yearly, bone density every 2-3 years and colonoscop y every 5-10 years depending on findings and history. Engage in daily exercise of low impact aerobic exercise 45-60 minutes 4-5 times weekly. Avoid tobacco and illicit drugs as well as using moderation with alcohol intake less than 1-2 8 oz beverages daily. This lifestyle behavior pattern will lead to less health conditions and longer life span. If BMI greater than 25 weight watchers or dietary consult advised. Questions have been answered. Patient appears to understand instructio ns, but if you have any further questions call or respond to this email Spouse of 40+yrs recently Norm pap/hpv hx (except 2019 neg hpv with ascus pap) We agreed to update pap/hpv. If wnl consider d/c pap/hpv screening Mammo ordered Dexa ordered She declined colonoscop y referral; we did discuss cologuard as another option which she will consider. She has significan t anxiety over any procedures that require sedation or anesthesia which is why she has declined colonoscop y all these years. Understand s the purpose, risks of not completing . NOTE: patient see's a cardiologi st & they are aware of her exteme anxiety that usually prompts HIGH BP's. She monitors this at home & compliant with cardiologi st/PCP care. No sx's today. Requested she contact her specialist & just let them know today's BP readings & also take BP twice today later on. Postmenopa usal osteopenia [id number] M85.80 Health Concerns Section Related Observation LastModified by Organization Detai ls LastModified Time None Recorded Concern Status LastModified by Organization Details LastModified Time None Recorded Advance Directives Directive None Recorded Payers Encounter Date Sequence Insurance Name Policy Number Policy Rainey Covered Member ID Rainey Member ID Guarantor Name 02/26/2020 1 [place] Gena Chung [id number] Notes Date Note Type Note Provider Name and Address Organization Details Recorded Time 02/26/2020 text/html Annual GYNReport ed bypatient.History: no gynecologic complaints Menstrual cycle:Postmenopaus e Urinary symptoms:No hematuria; No incontinence Vulva:No genital lesion Vagina:Normal vaginal discharge Breast:No breast pain; No breast lump; No nipple discharge Current Contraception:Not sexually active Sexual complaints:No sexual complaints; No pain during intercourse; Normal libido Menopausal Symptoms:No menopausal symptoms; Normal vaginal lubrication Psychological symptoms:No depression; No anxiety; No PMDD Preventive measures:Encourage self breast examination; Encourage regular exercise; Encourage no tobacco use; Encourage regular mammograms starting age 40; Needs to schedule mammogram; Never had colonoscopy. Significant anxiety over having this procedure. Dexa due now. Spouse of 49yrs recently Bree Rodríguez, [place]- [address], [place], [address], [facility] 02/26/2020 12:28:52 OBGyn Episode No OBEpisode recorded.
--- OUTSIDE RECORDS SUMMARY | 2024-08-16 08:16 | XMS_ITS | CONTINUITY OF CARE DOCUMENT ---
Author Name bhanu, bhanu Address Unknown Organization [facility] Address [address] [place] [address] Phone [phone] Care Team Providers Care In Home Nanny Name Role Phone Bernardo MORALES, Erick Unavailable Herminio MORALES, Jay Unavailable [phone] Jay Durham MD Unavailable [phone] PROBLEMS Condition Status Date Provider Notes Hyperlipidemia active Aditi Llamas RN Preoperative cardiovascular evaluation, hip active Clyde Young Cardiovascular screening active Clyde martinez COVID-19 vaccination completed - Erick Chang MD Anxiety active Erick Chang MD SVT-03/06 HOLTER SR -SHORT B URST OF SVT PAC-PVC active ? Everton Mancuso RN HTN--echo ef 70%, 01/2017 active Erick dewey MD ENCOUNTERS Date Type Provider Location Encounter Diag nosis - In-person encounter Office Visit Erick Chang MD, [facility] Cardiovascular screeningPreoperative cardiovascular evaluation, hip - In-person encounter Office Visit Erick Chang MD [facility] COVID-19 vaccination - In-person encounter [place] [facility] - In-person encounter Office Visit [facility] HTN--echo ef 70%, 01/2017 - In-person encounter Office Visit Erick Chang MD [facility] - In-person encounter Office Visit Erick Chang MD [facility] Anxiety - In-person encounter Office Visit Erick Chang MD [facility] - In-person encounter Office Visit Erick Chang MD [facility] - In-person encounter Office Visit Erick Chang MD [facility] - In-person encounter Office Visit Erick Chang MD [facility] - In-person encounter Office Visit Erick Chang MD [facility] - In-person encounter Office Visit Erick Chang MD [facility] - In-person encounter Office Visit Erick Chang MD [facility] - In-person encounter Office Visit Erick Chang MD [facility] - In-person encounter Office Visit Erick Chang MD [facility] - In-person encounter Office Visit Erick Chang MD [facility] - In-person encounter Office Visit Erick Chang MD [facility] - In-person encounter Office Visit Erick Chang MD [facility] - In-person encounter Office Visit Erick Chang MD [facility] HTN--echo ef 70%, 01/2017S-03/06 HOLTER SR -SHORT BURST OF SVT PAC-PVC VITAL SIGNS Date Observation Value Provider Body Mass Index (Ratio) 27.76 kg/m2 Isacc Chang MD pulse rate 73 /min Ashley Marquez blood pressure, diastolic 90 mm[Hg] Criselda bonnery Jimmy blood pressure, systolic 168 mm[Hg] Cecelia Marquez oxygen saturation, oximetry 93 % Ashley Marquez weight E&M 172 [lb_av] Ashley Marquez blood pressure, cuff size regular Criselda Marquez height E&M 66 [in_i] Ashley Marquez Body Mass Index (Ratio) 28.57 kg/m2 Isacc Chang MD blood pressure, diastolic 92 mm[Hg] Li nkLogic blood pressure, systolic 189 mm[Hg] Almita kLogic blood pressure, cuff size regular Ja rret blood pressure, diastolic 92 mm[Hg] Ja rret blood pressure, systolic 189 mm[Hg] Jar ret pulse rate 88 /min Quintin y oxygen saturation, oximetry 99 % Quintin respiratory rate E&M 12 /min Quintin weight E&M 177 [lb_av] Quintin y height E&M 66 [in_i] Quintin y Body Mass Index (Ratio) 27.27 kg/m2 Isacc Chang MD blood pressure, cuff size regular Ke rri Gruenenfelder blood pressure, diastolic 97 mm[Hg] Ke rri Gruenenfelder blood pressure, systolic 187 mm[Hg] Damaso ri Karinanenfjocelyner oxygen saturation, oximetry 98 % Tere Sebastiannfprice respiratory rate E&M 14 /min Tere Judd weaverenenaziaelder pulse rate 94 /min Tere Gruenenfe lder weight E&M 169 [lb_av] Tere Gruenenfe lder height E&M 66 [in_i] Tere Gruenenfe lder blood pressure, diastolic 72 mm[Hg] Pritesh justice [facility] blood pressure, systolic 120 mm[Hg] Belen betancur [facility] Body Mass Index (Ratio) 25.98 kg/m2 Isacc Chang MD weight E&M 161 [lb_av] Tre Nacht blood pressure, diastolic 70 mm[Hg] Ja cob Nacht blood pressure, systolic 120 mm[Hg] Harsh ob Nacht blood pressure, resting Yes Tons mcgrath Machuca height E&M 66 [in_i] Tonsha Machuca Body Mass Index (Ratio) 29.37 kg/m2 Isacc Chang MD blood pressure, diastolic 100 mm[Hg] [facility], [facility] 158 mm[Hg] Helga reece Rake oxygen saturation, oximetry 98 % [facility] E&M 16 /min [facility] 88 /[facility] weight E&M 182 [lb_av] Elvin Ramos height E&M 66 [in_i] [facility] Body Mass Index (Ratio) 28.89 kg/m2 Isacc Chang MD blood pressure, cuff size large Cy lenore Foss blood pressure, diastolic 80 mm[Hg] Cy lenore Foss blood pressure, systolic 130 mm[Hg] Kathleen shantel Foss oxygen saturation, oximetry 93 % Winter Foss respiratory rate E&M 18 /min Winter Foss pulse rate 87 /min Winter Campbel l weight E&M 179 [lb_av] Winter Campbel l height E&M 66 [in_i] Winter Campbel l Body Mass Index (Ratio) 29.05 kg/m2 Isacc Chang MD blood pressure, cuff size regular Bria Regan blood pressure, diastolic 90 mm[Hg] Bira Regan blood pressure, systolic 142 mm[Hg] Seng casas Jass oxygen saturation, oximetry 98 % Azucnea Regan respiratory rate E&M 16 /min Azucena Regan pulse rate 74 /min Azucena Regan weight E&M 180 [lb_av] Azucena Regan height E&M 66 [in_i] Azucena Regan blood pressure, diastolic 73 mm[Hg] To sharifa Chang MD blood pressure, systolic 127 mm[Hg] Avila Chang MD pulse rate 76 /min Nighat Prescott oxygen saturation, oximetry 98 % Nighat Prescott respiratory rate E&M 15 /min Nighat [facility] Body Mass Index (Ratio) 29.37 kg/m2 [facility] weight E&M 182 [lb_av] Nighat Prescott blood pressure, diastolic 85 mm[Hg] Wi shannon [facility] blood pressure, systolic 165 mm[Hg] Paula barboza [facility] Body Mass Index (Ratio) 29.53 kg/m2 [facility] pulse rate 70 /min Nighat [facility] oxygen saturation, oximetry 99 % Nighat [facility] respiratory rate E&M 15 /min Nighat Prescott weight E&M 183 [lb_av] Nighat Prescott Body Mass Index (Ratio) 30.02 kg/m2 Tacos Esquivel blood pressure, diastolic 75 mm[Hg] To sharifa Chang MD blood pressure, systolic 134 mm[Hg] Avila Chang MD pulse rate 94 /min Laura Esquivel oxygen saturation, oximetry 96 % Laura Esquivel respiratory rate E&M 16 /min Ken Esquivel weight E&M 186 [lb_av] Laura Esquivel Body Mass Index (Ratio) 29.00 kg/m2 Cardona rosie Queenie blood pressure, diastolic 85 mm[Hg] Amilcar romeo Queenie blood pressure, systolic 150 mm[Hg] Damaso de souza Queenie pulse rate 70 /min Tere Gonzalezisrraelestela lder oxygen saturation, oximetry 98 % Tere Queenie respiratory rate E&M 15 /min Tere Whaley brent weight E&M 179 [lb_av] Tere Beatrice lder blood pressure, diastolic 87 mm[Hg] Candelario Mancuso RN blood pressure, systolic 159 mm[Hg] Everton Mancuso RN pulse rate 103 /min Everton Mancuso RN oxygen saturation, oximetry 98 % Everton Mancuso RN respiratory rate E&M 17 /min Everton cantrell RN Body Mass Index (Ratio) 29.32 kg/m2 Everton Mancuso RN weight E&M 181 [lb_av] Everton Mancuso RN height E&M 66 [in_i] Everton Mancuso RN Body Mass Index (Ratio) 30.18 kg/m2 Isacc Chang MD height E&M 67 [in_i] Erick Chang MD blood pressure, diastolic 97 mm[Hg] Candelario Mancuso RN blood pressure, systolic 166 mm[Hg] Everton Mancuso RN pulse rate 80 /min Everton Mancuso RN oxygen saturation, oximetry 99 % Everton Mancuso RN respiratory rate E&M 18 /min Everton cantrell RN weight E&M 192 [lb_av] Everton Mancuso RN blood pressure, diastolic, supine 95 mm[H g] Erick Chagn MD blood pressure, systolic, supine E&M 176 mm[Hg] Erick Chang MD pulse rate 92 /min Erick Chang MD respiratory rate E&M 20 /min Erick Chang MD weight E&M 182 [lb_av] Erick Chang MD blood pressure, diastolic 88 mm[Hg] Yariel gibbons Navi blood pressure, systolic 172 mm[Hg] Manny rodriguez Navi pulse rate 76 /min Anna Navi oxygen saturation, oximetry 98 % Anna Navi respiratory rate E&M 16 /min Genaro palomares Mcelroy weight E&M 186 [lb_av] Anna Mcelroy blood pressure, diastolic 100 mm[Hg] Anna seph [place] blood pressure, systolic 170 mm[Hg] Justino escalante [place] pulse rate 66 /min Tr [place] oxygen saturation, oximetry 97 % Tr [place] respiratory rate E&M 16 /min Tr [place] weight E&M 184 [lb_av] Tr [place] Body Mass Index (Ratio) 25.11 kg/m2 Isacc Chang MD height E&M 66 [in_i] Erick Chang MD weight E&M 172 [lb_av] Erick Chang MD pulse rate 80 /min Erick Chang MD oxygen saturation, oximetry 99 % Erick Chang MD blood pressure, diastolic, supine 78 mm[H g] Erick Chang MD blood pressure, systolic, supine E&M 152 mm[Hg] Erick Chang MD ALLERGIES Allergy Name Onset Date Reaction Criticality Status METOPROLOL racing/skipping heart beats Low Crit icality active TOPROL Low Criticality active PREDNISONE Low Criticality active BACTRIM Low Criticality active PENICILLIN Low Criticality active RESULTS Date Observation Value Provider Reference Range Interpretation Location cholesterol/HDL ratio, serum, percent 6.0 (calc) [facility] < OR = 5.0 High LDL cholesterol, serum 123 MG/DL (CALC) [facility] <130 Normal triglyceride, serum, fasting 231 mg/dL [facility] <150 High HDL cholesterol, serum 34 mg/dL [facility] > [place] = 46 Low cholesterol, serum 203 mg/dL [facility] 125-200 High platelet count 297 10*3/mm3 [facility] hematocrit, blood 41.3 % [facility] thyroid stimulating hormone, serum 1.19 u[IU]/mL [facility] lipoprotein, beta, serum, point, quantitative, calculated 147 mg/dL [facility] cholesterol, serum 220 mg/dL [facility] alanine aminotransferase (SGPT), serum 19 1/L [facility] aspartate aminotransferase (SGOT), serum 21 1/L [facility] creatinine, serum 0.79 mg/dL [facility] potassium, serum 4.5 mmol/L [facility] sodium, serum 139 mmol/L [facility] HISTORY OF MEDICATION USE Medication Status Instructions Dates Provider Indications Com ments verapamil 120 mg tablet extended release active TAKE 1 TABLET BY MOUTH EVERY DAY 09/25 Carina Rushing verapamil 120 mg tablet extended release completed TAKE 1 TABLET BY MOUTH ONCE DAILY 09/29 - 09/25 [place] Rushing verapamil 120 mg tablet extended release completed Take 1 tablet by mouth once a day 07/14 - 09/29 Stefanie Kam RN hydroxyzine HCl 25 mg tablet active as needed 11/04 Tre Deluna verapamil 120 mg capsule,ext rel. pellets 24 hr completed Take 1 capsule by mouth once a day 10/06 - 07/14 Stefanie Kam RN CARVEDILOL 12.5 MG ORAL TABLET completed one tab twice a day; replaced Metoprolol 05/23 - 05/29 Park Andrews METOPROLOL SUCCINATE ER 50 MG ORAL TABLET EXTENDED RELEASE 24 HOUR completed take one tablet once daily 05/21 - 05/23 Aditi Llamas RN stop diltiazem DILTIAZEM HCL 30 MG ORAL TABLET completed One tablet three times a day - 05/21 Gena Munson RN DILTIAZEM HCL 60 MG ORAL TABLET completed take one tablet 3 times daily 12/31 - Jasper Cui RN this rx is given due to backlog on Diltiazem 90. Please inform patient when able to resume the 90 mg omeprazole 20 mg tablet,delayed release (DR/EC) active once a day 11/15 Nighat Prescott CALCIUM TABLET completed take one pill a day - 11/15 Nighat Prescott DILTIAZEM HCL ER 90 MG ORAL CAPSULE EXTENDED RELEASE 12 HOUR completed 1 Capsule; Take Once a Day. 07/05 - 12/31 Gena Munson RN TUSSIN SYRUP completed one tsp bid prn - 12/02 Tere Jerome CALCIUM CARBONATE TABLET completed 1 tablet by mouth daily - 06/14 Erick Chang MD MULTIVITAMINS TABS completed 1 tablet by mouth once a day - 06/18 Clyde Young FOLIC ACID TABLET completed one tab. daily 06/05 - 06/27 Everton Mancuso RN HYDROCHLOROTHIAZIDE 25 MG ORAL TABLET completed ONE TAB DAILY - 06/14 Erick Chang MD VERAPAMIL HCL ER 180 MG ORAL CAPSULE EXTENDED RELEASE 24 HOUR completed ONE TAB. DAILY - 12/02 Tere Jerome SOCIAL HISTORY Date Observation Value Provider drug use none Ashley Marquez alcohol use no Ashley Marquez passive cigarette sm tiffany exposure no Ashley Marquez smoking status Never smoker Ashley Marquez drug use none Clyde Young alcohol use no Clyde Richterzarosie passive cigarette sm tiffany exposure no Clyde Richterzarosie smoking status Never smoker Clyde Young social history E&M Marital Statu s: L fortunato with family/friends E thnicity: Smoking History: P deidre has never smoked. Clyde Young physical exercise, f requency, days per week yes Tere Jerome caffeine use, averag e drinks per day 0 /d Tere Jerome passive cigarette sm tiffany exposure no Tere Jerome smoking status Never smoker Tere horwoitz social history reviewed E&M revi ewed - no changes required Clyde Young social history E&M Marital Statu s: L fortunato with family/friends E thnicity: S moking History: Tayler jiang has never smoked. Clyde Young social history reviewed E&M revi ewed - no changes required Clyde Young physical exercise, f requency, days per week yes Bobby Lopez caffeine use, averag e drinks per day 0 /d Bobby Lopez passive cigarette sm tiffany exposure no Bobby Lopez smoking status Never smoker Bobby barrett social history reviewed E&M revi ewed - no changes required Bobby Lopez social history E&M Marital Statu s: L fortunato with family/friends E thnicity: Smoking History: Tayler jiang has never smoked. Bobby Lopez social history E&M Marital Statu s: L fortunato with family/friends E thnicity: Smoking History: Tayler jiang has never smoked. Tre Deluna social history reviewed E&M revi ewed - no changes required Tre Deluna physical exercise, f requency, days per week yes [facility]uca caffeine use, averag e drinks per day none [facility] passive cigarette sm tiffany exposure no [facility] smoking status Never smoker [facility] social history reviewed E&M revi ewed - no changes required Erick Chang MD social history E&M Marital Statu s: L fortunato with family/friends E thnicity: Smoking History: P deidre has never smoked. Erick Chang MD physical exercise, f requency, days per week yes Elvin Ramos alcohol use, average drinks per day none Elvin Rake alcohol use no [place] Ramos caffeine use, averag e drinks per day none [place] Rake drug use none Elvin Rake passive cigarette sm tiffany exposure no Elvin Rake smoking status Never smoker Elvin zhong social history E&M Marital Statu s: L fortunato with family/friends E thnicity: Smoking History: P deidre has never smoked. Erick Chang MD social history reviewed E&M revi ewed - no changes required Erick Chang MD number of grandchildren Erick Chang MD T wei Chang MD physical exercise, f requency, days per week yes Winter Foss alcohol use, average drinks per day none Winter Foss alcohol use no Winter dukes caffeine use, averag e drinks per day none Winter Foss drug use none Winter dukes passive cigarette sm tiffany exposure no Winter Foss smoking status Never smoker Winter Preet chau social history reviewed E&M revi ewed - no changes required Erick Chang MD physical exercise, f requency, days per week yes Azucena Regan alcohol use, average drinks per day none Azucena Regan alcohol use no Azucena Regan caffeine use, averag e drinks per day none Azucena Regan drug use none Azucena Regan passive cigarette sm tiffany exposure no Azucena Regan smoking status Never smoker Azucena Regan social history reviewed E&M revi ewed - no changes required Nighat Prescott physical exercise, f requency, days per week yes Nighat Prescott alcohol use, average drinks per day none Nighat Prescott alcohol use no Nighat Prescott caffeine use, averag e drinks per day none Nighat Prescott drug use none Nighat Prescott passive cigarette sm tiffany exposure no Nighat Prescott smoking status Never smoker Nighat Sarabia n social history reviewed E&M revi ewed - no changes required Erick Chang MD physical exercise, f requency, days per week yes Nighat Prescott alcohol use, average drinks per day none Nighat Prescott caffeine use, averag e drinks per day none Nighat Prescott drug use none Nighatjabari Prescott passive cigarette sm tiffany exposure no Nighatjabari Prescott smoking status Never smoker Nighat Sarabia n social history reviewed E&M revi ewed - no changes required Erick Chang MD social history reviewed E&M reviewed Erick Chang MD social history reviewed E&M reviewed Erick Chang MD drug use none Erick Chang MD passive cigarette sm tiffany exposure no Everton Mancuso RN smoking status never smoker Everton Mancuso RN smoking status Non-Smoker Everton Mancuso RN social history reviewed E&M reviewed Everton Mancuso RN social history reviewed E&M reviewed Erick Chang MD social history reviewed E&M reviewed Erick Chang MD social history E&M Marital Statu s: L fortunato with family/friends E thnicity: Erick Chang MD drug use none Erick Chang MD social history reviewed E&M reviewed Erick Chang MD physical exercise, f requency, days per week yes Jenny Jaime MA caffeine use, averag e drinks per day none Jennyalok Sandoval MA alcohol use, average drinks per day none Jennyalok Sandoval MA smoking status Smoker Jenny rhodes JURGEN social history reviewed E&M reviewed Jennyalok Sandoval MA FUNCTIONAL STATUS Date Observation Value Provider Reason Fall Assessment not done medical c ontraindication Ashley Marquez MENTAL STATUS Date Observation Value Provider assessment of judgme nt and insight E&M Alert and oriented to time, place and person. Mood and affect are normal. Erick Chang MD assessment of judgme nt and insight E&M Alert and oriented to time, place and person. Mood and affect are normal. Erick Chang MD assessment of judgme nt and insight E&M Alert and oriented to time, place and person. Mood and affect are normal. Everton Mancuso RN assessment of judgme nt and insight E&M Alert and oriented to time, place and person. Mood and affect are normal. Erick Chang MD assessment of judgme nt and insight E&M Alert and oriented to time, place and person. Mood and affect are normal. Erick Chang MD assessment of judgme nt and insight E&M Alert and oriented to time, place and person. Mood and affect are normal. Erick Chang MD assessment of judgme nt and insight E&M Alert and oriented to time, place and person. Mood and affect are normal. Erick Chang MD FAMILY HISTORY Family Member Condition Father Family History of Co ngestive Heart Failure: Mother Negative FH of Diabe emma, Hypertension, or Coronary Artery Disease INSURANCE PROVIDERS Payer name Policy type / Coverage type [place] red democrat ID BLUE SHIELD [facility] Blue Shield [id number] [place] MEDICARE PART B Medicare [id number] ADVANCE DIRECTIVES Name Date DISCUSSED - NO DECISION MADE TREATMENT PLAN Date Name Performer [id number],Clyde Saucedo i [id number],Clyde Saucedo i [id number],B, Clyde Ahmedza i [id number],S, Clyde Ahmedza i [id number],S, Clyde Ahmedza i [id number],B, Clyde Ahmedza i [id number],S, Clyde Ahmedza i [id number],S, Clyde Ahmedza i [id number],B, Clyde Ahmedza i [id number],S, Clyde Ahmedza i [id number],S, Clyde Ahmedza i [id number],S, Clyde Ahmedza i [id number],S, Lcyde Ahmedza i [id number],S, Clyde Ahmedza i [id number],S, Clyde Ahmedza i [id number],S, Clyde Ahmedza i Cardiology: H er updated medication list for this problem includes: Verapamil 120 Mg Tablet Extended Release (Verapamil) ..... Take 1 tablet by mouth every day Clyde medzai Cardiology: H er updated medication list for this problem includes: Verapamil 120 Mg Tablet Extended Release (Verapamil) ..... Take 1 tablet by mouth every day [facility]:This visi t has been a part of the consistent, comprehensive, and ongoing management of the chronic medical condition(s) listed above for the patient. Her updated medication list for this problem includes: Verapamil 120 Mg Tablet Extended Release (Verapamil) ..... Take 1 tablet by mouth every day Clyde Ahmedzai Cardiology: H er updated medication list for this problem includes: Verapamil 120 Mg Tablet Extended Release (Verapamil) ..... Take 1 tablet by mouth every day Clyde Ahmedzai Cardiology Clyde Ahmedzai Cardiology Clyde Ahmedzai Cardiology Clyde Ahmedzai Cardiology Clyde Ahmedzai Cardiology Clyde Ahmedzai Cardiology Clyde Ahmedzai Cardiology Clyde Ahmedzai Telehealth Clyde Ahmedzai Telehealth Clyde Ahmedzai Telehealth Clyde Ahmedzai Telehealth Clyde Ahmedzai Telehealth Clyde Ahmedzai Telehealth Clyde Ahmedzai Telehealth Clyde Ahmedzai Telehealth Clyde Ahmedzai TeleHealth Clyde Ahmedzai TeleHealth Clyde Ahmedzai TeleHealth Clyde Ahmedzai TeleHealth Clyde Ahmedzai Telehealth 6 m f/up Erick Chang MD Telehealth 6 m f/up Erick Chang MD Telehealth 6 m f/up Erick Chang MD Telehealth 6 m f/up Erick Chang MD TeleHealth, 3 month telehealth f /u Tre Deluna TeleHealth, 3 month telehealth f /u Tre Deluna TeleHealth, 3 month telehealth f /u Tre Deluna TeleHealth, 3 month telehealth f /u Tre Deluna Cardiology Erick Chang MD Cardiology Erick Chang MD Cardiology Erick Chang MD Cardiology [place] up Erick dewey MD Cardiology [place] Erick dewey MD Cardiology [place] Erick dewey MD follow up: H er updated medication list for this problem includes: Cardizem Cd 180 Mg Oral [id number] (Diltiazem hcl coated beads) ..... One tablet daily Erick Chang MD follow up: H er updated medication list for this problem includes: Cardizem Cd 180 Mg Oral [id number] (Diltiazem hcl coated beads) ..... One tablet daily Erick Chang MD follow up Erick Chang MD follow up: H er updated medication list for this problem includes: Verapamil Hcl Er 180 Mg Cr-tabs (Verapamil hcl) ..... One tablet daily Erick Chang MD follow up: H er updated medication list for this problem includes: Verapamil Hcl Er 180 Mg Cr-tabs (Verapamil hcl) ..... One tablet daily Orders: E KG (CPT-69958) BP today: 134/75 P rior BP: 150/85 (02/12/2013) Labs Reviewed: C reat: 0.79 (08/24/2011) C hol: 203 (01/19/2012) HDL: 34 (01/19/2012) LDL: 123 MG/DL (CALC) (01/19/2012) T (01/19/2012) Erick Chang MD Follow up: T he following medications were removed from the medication list: Verapamil Hcl Cr 180 Mg Cp24 (Verapamil hcl) ..... One tab. daily Her updated medication list for this problem includes: Verapamil Hcl Er 180 Mg Cr-tabs (Verapamil hcl) ..... One tablet daily BP today: 150/85 P rior BP: 159/87 (06/05/2012) Labs Reviewed: C reat: 0.79 (08/24/2011) C hol: 203 (01/19/2012) HDL: 34 (01/19/2012) LDL: 123 MG/DL (CALC) (01/19/2012) T (01/19/2012) Erick Chang MD Follow up: T he following medications were removed from the medication list: Verapamil Hcl Cr 180 Mg Cp24 (Verapamil hcl) ..... One tab. daily Her updated medication list for this problem includes: Verapamil Hcl Er 180 Mg Cr-tabs (Verapamil hcl) ..... One tablet daily BP today: 150/85 Prior BP: 159/87 (06/05/2012) H CT: 41.3 (08/24/2011) Platelets: 297 (08/24/2011) C reat: 0.79 (08/24/2011) Na+: 139 (08/24/2011) K+: 4.5 (08/24/2011) TSH: 1.19 (08/24/2011) Holter Monitor Comments: Normal sinus rhythm with one short-lasting episode of SVT. F requent PAC's. [facility] ([facility]) Erick Chang MD : H er updated medication list for this problem includes: Verapamil Hcl Cr 180 Mg Cp24 (Verapamil hcl) ..... One tab. daily BP today: 159/87 P rior BP: 166/97 (04/26/2011) & #13;Labs Reviewed: C reat: 0.79 (08/24/2011) C hol: 203 (01/19/2012) HDL: 34 (01/19/2012) LDL: 123 MG/DL (CALC) (01/19/2012) T (01/19/2012) Erick Chang MD : H er updated medication list for this problem includes: Verapamil Hcl Cr 180 Mg Cp24 (Verapamil hcl) ..... One tab. daily Orders: E KG (CPT-[id number]) BP today: 159/87 Prior BP: 166/97 (04/26/2011) H CT: 41.3 (08/24/2011) Platelets: 297 (08/24/2011) C reat: 0.79 (08/24/2011) Na+: 139 (08/24/2011) K+: 4.5 (08/24/2011) TSH: 1.19 (08/24/2011) Holter Monitor Comments: Normal sinus rhythm with one short-lasting episode of SVT. F requent PAC's. I [facility] (03/14/2006) Erick Chang MD : B P today: 159/87 Prior BP: 166/97 (04/26/2011) C HOL: 203 (01/19/2012) LDL: 123 MG/DL (CALC) (01/19/2012) HDL: 34 (01/19/2012) T (01/19/2012) Erick Chang MD routine: H er updated medication list for this problem includes: Verapamil Hcl Cr 180 Mg Cp24 (Verapamil hcl) ..... One tab. daily BP today: 188/ P rior BP: 176/95 (04/13/2010) Erick Chang MD routine: H er updated medication list for this problem includes: Verapamil Hcl Cr 180 Mg Cp24 (Verapamil hcl) ..... One tab. daily BP today: 188/ Prior BP: 176/95 (04/13/2010) H olter Monitor Comments: Normal sinus rhythm with one short-lasting episode of SVT. F requent PAC's. I [facility] [place] (03/14/2006) E chocardiogram: Normal left ventricular systolic function. Normal left ventricular size. Normal left ventricular wall thickness. There is E to A wave reversal consistent with impaired LV relaxation . Normal E/E` 7.0. L eft ventricular ejection fraction is estimated at 70 %. There is mild enlargement of the left atrium. No significant valvular abnormalities. (04/16/2010) Orders: Estela KG ([id number]) Erick Chang MD : T he following medications were removed from the medication list: Hydrochlorothiazide 25 Mg Tabs (Hydrochlorothiazide) ..... One tab daily Her updated medication list for this problem includes: Verapamil Hcl Cr 180 Mg Cp24 (Verapamil hcl) ..... One tab. daily BP today: 176/95 P rior BP: 172/88 (04/03/2009) Erick Chang MD : H er updated medication list for this problem includes: Verapamil Hcl Cr 180 Mg Cp24 (Verapamil hcl) ..... One tab. daily BP today: 176/95 Prior BP: 172/88 (04/03/2009) H olter Monitor Comments: Normal sinus rhythm with one short-lasting episode of SVT. F requent PAC's. I [facility] [place] (03/14/2006) E chocardiogram: Technically difficult study.The left ventricular chamber size is normal. Normal left ventricular wall thickness.Normal left ventricular function. LV EF is estimated at 65%. M inimal mitral regurgitation. N o evidence of aortic valve regurgitation. M inimal tricuspid regurgitation. [facility] (05/16/2008) Erick Chang MD f/u: H er updated medication list for this problem includes: Verapamil Hcl Cr 180 Mg Cp24 (Verapamil hcl) ..... One tab. daily BP today: 172/88 Prior BP: 170/100 (10/03/2008) H olter Monitor Comments: Normal sinus rhythm with one short-lasting episode of SVT. F requent PAC's. I nfrequent [facility] (03/14/2006) E chocardiogram: Technically difficult study.The left ventricular chamber size is normal. Normal left ventricular wall thickness.Normal left ventricular function. LV EF is estimated at 65%. M inimal mitral regurgitation. N o evidence of aortic valve regurgitation. M inimal tricuspid regurgitation. [facility] (05/16/2008) Erick Chang MD f/u: H er updated medication list for this problem includes: Hydrochlorothiazide 25 Mg Tabs (Hydrochlorothiazide) ..... One tab daily Verapamil Hcl Cr 180 Mg Cp24 (Verapamil hcl) ..... One tab. daily BP today: 172/88 P rior BP: 170/100 (10/03/2008) Erick Chang MD 6 month follow-up RM #6: H er updated medication list for this problem includes: Hydrochlorothiazide 25 Mg Tabs (Hydrochlorothiazide) ..... One tab daily Verapamil Hcl Cr 180 Mg Cp24 (Verapamil hcl) ..... One tab. daily BP today: 170/100 P rior BP: 152/78 (04/04/2008) Erick Chang MD 6 month follow-up RM #6: H er updated medication list for this problem includes: Verapamil Hcl Cr 180 Mg Cp24 (Verapamil hcl) ..... One tab. daily BP today: 170/100 Prior BP: 152/78 (04/04/2008) H olter Monitor Comments: Normal sinus rhythm with one short-lasting episode of SVT. F requent PAC's. I nfrequent PVC's. [facility] (03/14/2006) E chocardiogram: Technically difficult study.The left ventricular chamber size is normal. Normal left ventricular wall thickness.Normal left ventricular function. LV EF is estimated at 65%. M inimal mitral regurgitation. N o evidence of aortic valve regurgitation. M inimal tricuspid regurgitation. [facility] (05/16/2008) Erick Chang MD New Patient: H er updated medication list for this problem includes: Verapamil Hcl Cr 180 Mg Cp24 (Verapamil hcl) ..... One tab. daily Erick Chang MD New Patient: H er updated medication list for this problem includes: Verapamil Hcl Cr 180 Mg Cp24 (Verapamil hcl) ..... One tab. daily Hydrochlorothiazide 25 Mg Tabs (Hydrochlorothiazide) ..... One tab daily BP today: 152/78 Erick Chang MD Date Name HEMOGLOBIN A1c LIPID PANEL CBC (INCLUDES DIFF/P LT) COMPREHENSIVE METABO LIC PANEL, W/EGFR HISTORY OF PROCEDURES Procedure Date Procedure Name Provider Procedure Notes S tatus Complex e/m visit add on Erick Chang MD completed EKG Erick Chang MD completed EKG Erick Chang MD completed EKG Erick Chang MD completed EKG Elvin Ramos completed EKG Erick Chang MD completed SNOMED-CT: [id number] Current Medications Documented Erick Chang MD completed EKG Erick Chang MD completed SNOMED-CT: [id number] Current Medications Documented Erick Chang MD completed EKG Erick Chang MD completed EKG Erick Chang MD completed EKG Erick Chang MD completed
--- OUTSIDE RECORDS SUMMARY | 2024-08-16 08:16 | XMS_ITS | Clinical Summary ---
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 Name Role Phone Jay Durham MD Primary Care Provider [phone] Allergies Active Allergy Reactions Criticality Noted Date Comments Amoxicillin Hives 2023 Epinephrine Chest pressure 09/20/2023 Causes her heart to race Latex Unknown 09/20/2023 Metoprolol Other (see comment) Low 10/03/2008 Causes her heart to slow down and skip beats Penicillins Rash,Hives Medium 04/06/2017 As child Prednisone Swelling,Unknown 07/28/2017 Can't have steroids at all-causes swelling Rosuvastatin Other (see comment) 10/09/2023 Muscle cramps Sulfamethoxazole-Trimet hoprim Unknown Low 04/04/2008 Topiramate Palpitations Medium 09/20/2023 Causes pts heart to slow down and skip beats Medications omeprazole (PRILOSEC) 20 MG capsuleIndicatio ns:Gastroesophag eal reflux 1 capsule (20 mg total). Indications: Gastroesophageal reflux Active Magnesium Oxide 420 MG TabIndications:s upplement Take 400 mg by mouth 3 (three) times a week. Indications: supplement Active docusate sodium (COLACE) 100 MG capsuleIndicatio ns:constipation Take 1 capsule (100 mg total) by mouth 2 (two) times daily. Indications: constipation 024 Active HYDROcodone-acet aminophen (NORCO) 5-325 MG tabletIndication s:Acute Pain < 7 Day Supply Take 1-2 tablets by mouth every 4 (four) hours as needed. Indications: Acute Pain < 7 Day Supply 45 tablet 024 Active Additional Information Patient not taking.Reported on 04/25/2024 azelastine (ASTELIN) 0.1 % nasal sprayIndications :Nasal Congestion 1 spray by Nasal route 2 (two) times daily. Indications: Stuffy Nose Use in each nostril as directed 30 mL 3 024 Active fexofenadine (THOMAS) 180 MG tabletIndication s:Seasonal allergic rhinitis, unspecified trigger Take 1 tablet (180 mg total) by mouth daily. 30 tablet 2 024 Active olopatadine (PATANOL) 0.1 % ophthalmic solutionIndicati ons:Seasonal allergic rhinitis, unspecified trigger Place 1 drop into both eyes 2 (two) times daily. 5 mL 6 024 Active hydrOXYzine (ATARAX) 25 MG tabletIndication s:Anxiety Take 1 tablet (25 mg total) by mouth nightly at bedtime. Indications: Feeling Anxious 90 tablet 1 024 Active meloxicam (MOBIC) 15 MG tabletIndication s:Status post total hip replacement, right Take 1 tablet (15 mg total) by mouth daily. 30 tablet 2 024 Active clindamycin (CLEOCIN) 150 MG capsuleIndicatio ns:Status post total hip replacement, right,Prophylact ic antibiotic TAKE ONE (1) 150MG CAPSULE 30-60 MINUTES PRIOR TO DENTAL PROCEDURE/APPOINTM ENT. THEN TAKE ONE (1) CAPSULE EVERY FOUR (4) HOURS UNTIL GONE. 5 capsule 025 Active pravastatin (PRAVACHOL) 40 MG tabletIndication s:Mixed hyperlipidemia TAKE 1 TABLET(40 MG) BY MOUTH EVERY NIGHT AT BEDTIME FOR HIGH AMOUNT OF FATS IN THE BLOOD 90 tablet 025 Active verapamil (CALAN SR) 120 MG ER tabletIndication s:Primary hypertension,Tac hycardia TAKE 1 TABLET(120 MG) BY MOUTH DAILY 90 tablet 025 Active pravastatin (PRAVACHOL) 40 MG tabletIndication s:Hyperlipidemia Take 1 tablet (40 mg total) by mouth nightly at bedtime. Indications: High Amount of Fats in the Blood 90 tablet 1 024 07/23 Discontinued verapamil (CALAN SR) 120 MG ER tabletIndication s:Primary hypertension,Tac hycardia Take 1 tablet (120 mg total) by mouth daily. 90 tablet 1 024 07/23 Discontinued Active Problems Problem Noted Date Diagnosed Date Fall 04/28/2024 Hyperlipidemia 02/14/2024 Status post total hip replacement, right Assessment & Plan (04/26/2024 1:22 PM YOUTH OFFICER): She had a recent Covid infection, so she may just have some chronic inflammation from Covid. We'll get her started on an anti-inflammatory. She's going to give us a call in two weeks. Assessment & Plan (04/08/2024 5:18 PM YOUTH OFFICER): Recommendation at this time is to continue with a progressive range of motion and strengthening. We'll see her back in six months for a repeat evaluation. Assessment & Plan (01/09/2024 11:52 AM CDT): At this time continue with progressive range of motion and strengthening. We'll see her back in three months Assessment & Plan (12/12/2023 11:58 AM CDT): Recommendation at this time is to continue with a progressive range of motion and strengthening. We'll see her back in four weeks with an x-ray. BMI 29.0-29.9,adult 10/09/2023 Primary osteoarthritis of right hip 10/07/2023 Assessment & Plan (10/07/2023 1:05 PM CDT): Recommendation at this time: went over the risks, benefits as well as the alternatives. She is wanting to get total hip arthroplasty on the right but also has a fractured tooth that she wants to get taken care of first. She has an appointment with the dentist on Monday to see the dentist and they'll give us a call back when she wants to proceed with surgery. I'll need at least two weeks after to get her set up for hip replacement. Patient will be seen back after she lets us know when she wants to schedule surgery. Acute vaginitis 10/24/2018 Overview (11/29/2023): Acute vulvovaginitis;Recorded Elsewhere: No Location: [facility] Source: EHR Chronic: N Practice ID: [id number] Billable Time: 10:00:00 AM Tachycardia 09/03/2018 Pain of right hip joint 06/04/2017 Overview (11/29/2023): Pain in rt hip;Recorded Elsewhere: No Location: [facility] Source: EHR Chronic: N Practice ID: [id number] Billable Time: 10:30:00 AM Hypertensive disorder 09/07/2015 Overview (11/29/2023): HTN;Recorded Elsewhere: No Location: [facility] Source: EHR Chronic: N Practice ID: [id number] Billable Time: 08:30:00 AM Atypical glandular cells on cervical Pap smear 0 10/23/2014 Overview (11/29/2023): Abnormal glandular Papanicolaou smear of cervix;Recorded Elsewhere: No Location: [facility] Source: EHR Chronic: N Practice ID: [id number] Billable Time: 09:30:00 AM Proteinuria 08/29/2013 Overview (11/29/2023): Proteinuria;Recorded Elsewhere: No Location: [facility] Source: EHR Chronic: N Practice ID: [id number] Billable Time: 09:30:00 AM Allergy Anxiety Arthritis Encounters Date Type Department Care Team Description 08/09/2024 Telephone [facility] [address] [place] [address] Mariusz Garcia, DO Information 08/05/2024 Telephone [facility] [address] [place] [address] Mariusz Garcia DO MRI Results (Lumbar spine MRI) 07/29/2024 Scan [employer] INFO SRVCS Scanned, [facility] 07/26/2024 9:43 AM CDT - 07/26/2024 11:59 PM CDT Hospital Encounter [facility] [address] [facility] [facility] [place] [address] Mariusz Garcia DO Discharge Disposition: Home or Self Care (Routine Discharge) 07/26/2024 Travel 07/11/2024 Telephone [facility] [address] [place] [address] Mariusz Garcia DO Follow Up Call 07/09/2024 Telephone [facility] [address] [place] [address] Mariusz Garcia DO Results 07/09/2024 Telephone [facility] [address] [place] [address] Mariusz Garcia DO Results (Lumbar spine xray) 06/28/2024 12:12 PM YOUTH OFFICER - 06/28/2024 11:59 PM YOUTH OFFICER Hospital Encounter [facility] [address] [place] [address] Mariusz Garcia DO Discharge Disposition: Home or Self Care (Routine Discharge) 06/28/2024 Travel 06/28/2024 Telephone [facility] - [address] [place] [address] Jay Durham MD Other 06/28/2024 Orders Only [facility] [address] [place] [address] Mariusz Garcia DO 06/28/2024 Telephone [facility] [place] - [address] [place] [address] Jay Durham MD Question 06/17/2024 MyChart Message Enc [facility] - [address] [place] [address] Jay Durham MD possible x-ray please 06/04/2024 Telephone [facility] [address] [place] [address] Mariusz Garcia DO Question 05/31/2024 Telephone [facility] [address] [place] [address] Mariusz Garcia DO Medication Request from Last 3 Months Immunizations Immunization Administration Dates Next Due Fluzone High Dose - >Age 65 (Prefilled Syringe) 02/17/2023,02/19/2022,02/05/2021,2019 Influenza Adult (Generic) 06/06/2019 Pneumococcal (Pneumovax 23) 03/19/2021 Pneumococcal (Prevnar 13) 02/21/2020 Shingrix 11/15/2021,10/29/2020 Family History Medical History Relation Comments Heart Disease Father Cancer Mother Relation Status Comments Father Mother Social History Tobacco Use Types Packs/Day Years Used Date Smoking Tobacco: Never Smokeless Tobacco: Never Tobacco Cessation:Counseling Given: No Comments:Counseled by Dr. Durham Alcohol Use Standard Drinks/Week Comments Never 0 [...] Sex Assigned at Female 06/28/2024 12:07 PM YOUTH OFFICER Legal Sex Female 5:26 PM CDT Gender Identity Not on file Sexual Orientation Not on file Last Filed Vital Signs Vital Sign Reading Time Taken Comments Blood Pressure 139/80 04/25/2024 2:45 PM YOUTH OFFICER Pulse 82 04/25/2024 2:45 PM YOUTH OFFICER Temperature 37.3 C (99.1 F) 04/25/2024 2:45 PM YOUTH OFFICER Respiratory Rate 18 03/08/2024 9:53 AM YOUTH OFFICER Oxygen Saturation 98% 04/25/2024 2:45 PM YOUTH OFFICER Inhaled Oxygen Concentration - - Weight 81.7 kg (180 lb 3.2 oz) 04/25/2024 2:45 P M YOUTH OFFICER Height 165.1 cm (5' 5 ) 04/25/2024 2:45 PM YOUTH OFFICER Body Mass Index 29.99 04/25/2024 2:45 PM YOUTH OFFICER Plan of Treatment Upcoming Encounters Date Type Department Care Team (Late st Contact Info) Description 09/06/2024 10:20 AM CDT Office Visit [facility] - [address] [address] [address] [place] [address] Jay Durham MD [address] [facility] [address] [place] [address] 10/07/2024 3:20 PM CDT Office Visit [facility] - [place] [address] [facility] [address] [place], [place] [id number] [place] [address] [place], [place] [id number] Health Maintenance Due Date Last Done Comments DTaP, Tdap and Td Vaccines ( 1 - Tdap) 1974 COVID-19 Vaccine ( - 2023-2 5 season) 2023 04/14/2021, 07/31/2020, 07/10/2020 PHQ-2 (Physician [place]) 05/01/2024 09/20/2023 Annual Medicare Wellness Visit 05/15/2025 Postponed from 10/18 (Patient Refused) Mammogram Screening 08/10/2025 08/11/2023 Colorectal Cancer Screening FIT-DNA (3 Years) 08/14/2026 08/15/2023, 08/15/2023 RSV Immunization or 60+ Years (1 - 1-dose 75+ series) 2029 Pneumococcal Vaccine: 50+ Years Completed 03/19/2021, 02/21/2020 Zoster Vaccines Completed 11/15/2021, 10/29/2020 Dexa Scan (General) Completed 12/03/2021 Hepatitis C Completed 09/20/2023 Meningococcal B Vaccine Aged Out No l onger eligible based on patient's age to complete this topic Meningococcal Vaccine Aged Out No ana rosaline eligible based on patient's age to complete this topic RSV Immunizations Under 20 Months Aged Out No longer eligible b ased on patient's age to complete this topic Medical Devices Implanted Type Area Tool Technician Device Identifier Shelf Expiration Date Model / Serial / Lot Delivery System On-Q Pain Pump 5 - [id number] Implanted:Qty : 1 on 11/28/2023 by Mariusz Garcia DO at [facility] Catheter Implant [employer] [id number] / / Cup Acetabular Depuy 52mm - [id number] Implanted:Qty : 1 on 11/28/2023 by Mariusz Garcia DO at [facility] Hip Components Right: Hip DEPUY [id number] 03/30/2033 [id number] / / [id number] Head Depuy Femoral Delta 32mm +1 - [id number] Implanted:Qty : 1 on 11/28/2023 by Mariusz Garcia DO at [facility] Hip Components Right: Hip DEPUY [id number] 05/31/2028 [id number] / / [id number] Liner Depuy Acetabular Altrx Neut 32 X 52 - [id number] Implanted:Qty : 1 on 11/28/2023 by Mariusz Garcia DO at [facility] Hip Components Right: Hip DEPUY [id number] 08/29/2027 [id number] / / [id number] Pump Pain On-Q 400ml - [id number] Implanted:Qty : 1 on 11/28/2023 by Mariusz Garcia DO at [facility] Pump [employer] [id number] / / Actis Duofix Hip Prosthesis Femoral Stem 04/13 Taper Cementless High Collar Implanted:Qty : 1 on 11/28/2023 by Mariusz Garcia DO at [facility] Right: Hip [employer] - [employer] TIARA [employer] TIARA [id number] 08/28/2033 [id number] / / [id number] Procedures Procedure Name Priority Date/Time Associated Diagnosis Comments MRI LUMB SPINE WO CON Routine 07/26/2024 10:27 AM CDT Spondylolysis of lumbar region XR LUMB SPINE 3V Routine 06/28/2024 12:3 9 PM YOUTH OFFICER Status post total hip replacement, right Acute bilateral low back pain with sciatica, sciatica laterality unspecified HEPATITIS C ANTIBODY Routine 09/20/2023 9:16 AM CDT General medical exam COLOGUARD (SCAN ORDER) Routine 08/15/2023 MAMMOGRAM GENERIC (SCAN ORDER) 08/11/2023 BONE DENSITY GENERIC (SCAN ORDER) 12/03/2021 from Last 3 Months or Most Recently Relevant to Health Maintenance Results * MRI LUMB SPINE WO CON (07/26/2024 10:27 AM CDT) Anatomical Region Laterality Modality Spine Magnetic Resonan ce 07/31/2024 9:06 AM CDT Impressions 07/31/2024 9:19 AM CDT IMPRESSION: 1. Transitional anatomy at the lumbosacral junction with partial lumbarization the presumed S1 vertebral body. Radiographic correlation would be recommended prior to any potential intervention. 2. Severe central canal stenosis at the presumed L4/L5 level due to grade 1 anterolisthesis, facet arthropathy and thickening of ligamentum flavum. 3. Moderate bilateral neural foraminal stenosis at L4/L5. 4. Indeterminate focal bony lesions within the presumed T12 and L2 vertebral bodies, possibly reflecting atypical lipid poor hemangiomas. Osseous metastasis cannot be excluded. Short-term follow-up noncontrast enhanced MRI of the lumbar spine within 3-4 months is recommended. 5. Cholelithiasis. Referred By: MARIUSZ GARCIA Interpreted By: Jasper Mercer MD, 07/31/2024 9:06 AM Narrative 07/31/2024 9:19 AM CDT [address] [place] [address] EXAMINATION:Lumbar spine MRI without contrast 07/26/24 INDICATION:Lower back pain, bilateral lower extremity pain TECHNIQUE: Multiplanar, multisequence or imaging of the lumbar spine was performed without intravenous contrast. COMPARISON: Lumbar radiographs 06/28/2024 FINDINGS:There is transitional anatomy at the lumbosacral junction with partial sacralization lumbarization of the presumed S1 vertebral body. Mild lumbar levoscoliosis is similar to the prior radiographs. There is grade 1 anterolisthesis at L4/L5 measuring 5 mm. Modic type II degenerative changes noted at L1/L2 and L5/S1. There is a 1.9 cm ovoid lesion within the T12 vertebral body demonstrating hyperintense T2 and STIR signal and decreased T1 signal. There is a 3.8 cm rounded lesion within the upper L2 vertebral body demonstrating hyperintense T2/STIR signal and intermediate to decreased T1 signal. No acute fracture or dislocation. The conus terminates at the lower L1 level and is unremarkable contour and signal. No paraspinal mass or fluid collection the visualized abdominal aorta is unremarkable contour. There are multiple calculi within the gallbladder lumen measuring approximately 1 cm diameter. The upper sacral joint spaces are unremarkable T12/L1: Negative L1/L2: Disc space narrowing disc bulging and small left foraminal disc protrusion causing slight effacement of ventral thecal sac and mild left neural foraminal stenosis L2/L3: Disc space narrowing disc bulging and facet arthropathy causing slight effacement of ventral thecal sac and mild bilateral foraminal stenosis L3/L4: Disc space narrowing disc bulging and facet arthropathy with thickening of ligamentum flavum causing mild central canal stenosis and mild bilateral neural foraminal stenosis. The thecal sac measures 7 mm L4/L5: Disc space narrowing with grade 1 anterolisthesis, facet arthropathy and thickening of the ligamentum flavum causing severe central canal stenosis and moderate bilateral foraminal stenosis. Thecal sac measures 3 mm. L5/S1: Disc space narrowing with small posterior disc/osteophyte complex, facet arthropathy and bilateral foraminal disc/osteophyte complexes causing mild central canal stenosis and effacement left lateral recess and mild bilateral foraminal stenosis. Thecal sac measures 7 mm. There is a 1.5 cm T2 hyperintense lesion within the central canal at the S2/S3 level to the right of midline, compatible with a Tarlov cyst. Procedure Note Jasper Mercer MD - 07/31/2024 [address] [place] [address] EXAMINATION:Lumbar spine MRI without contrast 07/26/24 INDICATION:Lower back pain, bilateral lower extremity pain TECHNIQUE: Multiplanar, multisequence or imaging of the lumbar spine wasperformed without intravenous contrast. COMPARISON: Lumbar radiographs 06/28/2024 FINDINGS:There is transitional anatomy at the lumbosacral junction withpartial sacralization lumbarization of the presumed S1 vertebral body.Mild lumbar levoscoliosis is similar to the prior radiographs. There isgrade 1 anterolisthesis at L4/L5 measuring 5 mm. Modic type IIdegenerative changes noted at L1/L2 and L5/S1. There is a 1.9 cm ovoid lesion within the T12 vertebral body demonstratinghyperintense T2 and STIR signal and decreased T1 signal. There is a 3.8 cmrounded lesion within the upper L2 vertebral body demonstratinghyperintense T2/STIR signal and intermediate to decreased T1 signal. Noacute fracture or dislocation. The conus terminates at the lower L1 level and is unremarkable contour andsignal. No paraspinal mass or fluid collection the visualized abdominalaorta is unremarkable contour. There are multiple calculi within thegallbladder lumen measuring approximately 1 cm diameter. The upper sacraljoint spaces are unremarkable T12/L1: Negative L1/L2: Disc space narrowing disc bulging and small left foraminal discprotrusion causing slight effacement of ventral thecal sac and mild leftneural foraminal stenosis L2/L3: Disc space narrowing disc bulging and facet arthropathy causingslight effacement of ventral thecal sac and mild bilateral foraminalstenosis L3/L4: Disc space narrowing disc bulging and facet arthropathy withthickening of ligamentum flavum causing mild central canal stenosis andmild bilateral neural foraminal stenosis. The thecal sac measures 7 mm L4/L5: Disc space narrowing with grade 1 anterolisthesis, facetarthropathy and thickening of the ligamentum flavum causing severe centralcanal stenosis and moderate bilateral foraminal stenosis. Thecal sacmeasures 3 mm. L5/S1: Disc space narrowing with small posterior disc/osteophyte complex,facet arthropathy and bilateral foraminal disc/osteophyte complexescausing mild central canal stenosis and effacement left lateral recess andmild bilateral foraminal stenosis. Thecal sac measures 7 mm. There is a 1.5 cm T2 hyperintense lesion within the central canal at theS2/S3 level to the right of midline, compatible with a Tarlov cyst. IMPRESSION: 1. Transitional anatomy at the lumbosacral junction with partiallumbarization the presumed S1 vertebral body. Radiographic correlationwould be recommended prior to any potential intervention. 2. Severe central canal stenosis at the presumed L4/L5 level due to grade1 anterolisthesis, facet arthropathy and thickening of ligamentumflavum. 3. Moderate bilateral neural foraminal stenosis at L4/L5. 4. Indeterminate focal bony lesions within the presumed T12 and S7ketioopej bodies, possibly reflecting atypical lipid poor hemangiomas.Osseous metastasis cannot be excluded. Short-term follow-up noncontrastenhanced MRI of the lumbar spine within 3-4 months is recommended. 5. Cholelithiasis. Referred By: MARIUSZ GARCIA Interpreted By: Jasper eMrcer MD, 07/31/2024 9:06 AM Mariusz Garcia DO MRI Final Result * XR LUMB SPINE 3V (06/28/2024 12:39 PM YOUTH OFFICER) Anatomical Region Laterality Modality Spine Radiographic Ara ging 06/28/2024 12:3 9 PM YOUTH OFFICER Impressions 06/28/2024 12:41 PM YOUTH OFFICER IMPRESSION: 1. Moderate to severe lumbar spondylosis, as described. 2. Levoscoliosis. Ordered By: MARIUSZ GARCIA Interpreted By: Otto Jacobo MD, 06/28/2024 12:39 PM Narrative 06/28/2024 12:41 PM YOUTH OFFICER [address] [place] [address] XR LUMB SPINE 3V INDICATION: low back pain TECHNIQUE: AP lateral views of the lumbar spine with coned-down view lumbosacral junction. COMPARISON: None FINDINGS: There are 5 nonrib-bearing lumbar-type vertebrae. Partial lumbarization of S1. There is levoscoliosis of the lumbar spine centered at L3. Lumbar spine vertebral body heights appear maintained. No convincing radiographic evidence for acute fracture. Mild grade 1 anterolisthesis of L4 on L5, likely degenerative. Multilevel moderate to severe lumbar spondylosis is present. Disc height loss most prominent at L1-L2, and L4-L5. Lower lumbar facet arthropathy is present. Mild degenerative changes of the sacroiliac joints. Partially visualized right hip arthroplasty. Procedure Note Otto Jacobo MD - 06/28/[address] [place] [address] XR LUMB SPINE 3V INDICATION: low back pain TECHNIQUE: AP lateral views of the lumbar spine with coned-down viewlumbosacral junction. COMPARISON: None FINDINGS: There are 5 nonrib-bearing lumbar-type vertebrae. Partial lumbarization ofS1. There is levoscoliosis of the lumbar spine centered at L3. Lumbarspine vertebral body heights appear maintained. No convincing radiographicevidence for acute fracture. Mild grade 1 anterolisthesis of L4 on L5,likely degenerative. Multilevel moderate to severe lumbar spondylosis ispresent. Disc height loss most prominent at L1-L2, and L4-L5. Lower lumbarfacet arthropathy is present. Mild degenerative changes of the sacroiliacjoints. Partially visualized right hip arthroplasty. IMPRESSION: 1. Moderate to severe lumbar spondylosis, as described. 2. Levoscoliosis. Ordered By: MARIUSZ GARCIA Interpreted By: Otto Jacobo MD, 06/28/2024 12:39 PM us Mariusz Garcai DO GENERAL IMAGING Final Result * HEPATITIS C ANTIBODY (09/20/2023 9:16 AM CDT) HEPATITIS C AB NON-REACTI VE NON-REACT LEO 09/20/2023 7:31 PM CDT [facility] Comment: ANTIBODIES TO HCV NOT DETECTED. DOES NOT EXCLUDE THE POSSIBILITY OF EXPOSURE TO HCV. 09/20/2023 9:16 AM CDT Jay Durham MD LABORATORY Final Result Performing Organization Address [facility] Co de Phone Number [facility] [address] [place] [address], [place] [phone] * COLOGUARD (08/15/2023) STOOL 08/15/2023 [employer] [facility] Scanned SCANNING Final Resu lt Performing Organization Address [facility] Co de Phone Number [facility] ONBASE * MAMMOGRAM GENERIC (SCAN ORDER) (08/11/2023) Anatomical Region Laterality Modality Other 08/11/2023 [employer] [facility] Scanned SCANNING Final Resu lt * BONE DENSITY GENERIC (SCAN ORDER) (12/03/2021) Anatomical Region Laterality Modality Other 12/03/2021 [employer] [facility] Scanned SCANNING Final Resu lt from Last 3 Months or Most Recently Relevant to Health Maintenance Insurance MEDICARE [facility] Advance Directives * Full Code (Latest Code Status on File) Date Activated Date Inactivated Comments 12/03/2023 11:13 AM * Full Code Date Activated Date Inactivated Comments 11/28/2023 6:43 PM 11/30/2023 4:25 PM Care Teams Funeral Limousine Driver Relationship Specialty Start Date End Date Jay Durham MD [address] [address] PCP - General INTERNAL MEDICINE 03/16/23
--- OUTSIDE RECORDS SUMMARY | 2024-08-16 08:16 | XMS_ITS | Encounter Summary ---
Author Organization [facility] - [facility] Address [address] [place] [address] Care Team Providers Care Sales Representative [employer] Name Role Phone Jay Durham MD Primary Care Provider [phone] Encounter Details Date Type Department Care Team (Late st Contact Info) Description 11/16/2023 MyChart Message Enc [facility] Medical Group Multispecialty Care - [place] [address] [address] [place], [place] [phone] Jay Durham MD [address] [place] [address] [phone] Cholesterol Social History Tobacco Use Types Packs/Day Years Used Date Smoking Tobacco: Never Smokeless Tobacco: Never Comments:Counseled by Dr. 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 Sex Female 5:26 PM CDT Gender Identity Not on file Sexual Orientation Not on file documented as of this encounter Plan of Treatment Upcoming Encounters Date Type Department Care Team (Late st Contact Info) Description 09/06/2024 10:20 AM CDT Office Visit [facility] Multispecialty Care - [place] [address] [place] [address] [address] [place] [address] Jay Durham MD [address] [address] 10/07/2024 3:20 PM CDT Office Visit [facility] Orthopedic Surgery - [place] [address] [address] [facility] [address] [place] [address] [place] [address] [place], [place] [id number] documented as of this encounter Visit Diagnoses Not on filedocumented in this encounter Care Teams Sales Representative [employer] Relationship Specialty Start Date End Date Jay Durham MD [address] [place] [address] PCP - General INTERNAL MEDICINE 03/16/23 documented as of this encounter
--- OUTSIDE RECORDS SUMMARY | 2024-08-16 08:16 | XMS_ITS | Encounter Summary ---
Author Organization [facility] Address [address] [place] [address] Care Team Providers Care Marketing Teacher Name Role Phone Jay Durham MD Primary Care Provider [phone] Encounter Details Date Type Department Care Team (Late st Contact Info) Description 11/04/2023 MyChart Message Enc [facility] Medical Group Orthopedic Surgery [facility] [address] [place] [address] [place] [address] [place] [address] 5 questionaires Social History Tobacco Use Types Packs/Day Years Used Date Smoking Tobacco: Never Smokeless Tobacco: Never Comments:Counseled by Dr. 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 Sex Female 5:26 PM CDT Gender Identity Not on file Sexual Orientation Not on file documented as of this encounter Plan of Treatment Upcoming Encounters Date Type Department Care Team (Late st Contact Info) Description 09/06/2024 10:20 AM CDT Office Visit [facility] Multispecialty Care - [place] [address] [place] [address] [address] [place] [address] Jay Durham MD [address] [address] 10/07/2024 3:20 PM CDT Office Visit [facility] Medical [facility] Orthopedic Surgery - [place] [address] [place] [address] [place] [address] [place], [place] [phone] documented as of this encounter Visit Diagnoses Not on filedocumented in this encounter Care Teams Marketing Teacher Relationship Specialty Start Date End Date Jay Durham MD [address] [place] [address] PCP - General INTERNAL MEDICINE 03/16/23 documented as of this encounter
--- OUTSIDE RECORDS SUMMARY | 2024-08-16 08:16 | XMS_ITS | Encounter Summary ---
Author Organization [facility] - [facility] Address Pending sale to [facility] [place] [address] Care Team Providers Care Neon Sign Worker Name Role Phone Jay Durham MD Primary Care Provider [phone] Encounter Details Date Type Department Care Team (Late st Contact Info) Description 03/13/2024 MyChart Message Enc [facility] Medical Group Multispecialty Care - [place] [address] [address] [place] [address] Jay Durham MD [address] [place] [id number] test results Social History Tobacco Use Types Packs/Day Years [...] Sex Assigned at Female 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/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 Sex Female 5:26 PM CDT Gender [...] Assessment Author Status Yes 11/28/2023 6:00 PM Lindsay Sky RN Active documented as of this encounter [...] Description 09/06/2024 10:20 AM CDT Office Visit [facility] Medical Group Multispecialty Care [place] [address] [address] [place] [address] Jay Durham MD [address] [place] [address] 10/07/2024 3:20 PM CDT Office Visit [facility] Medical Group Orthopedic Surgery - [place] [address] [place] [address] [place] [address] [place] [address] documented as of this encounter Visit Diagnoses Not on filedocumented in this encounter Care Teams Neon Sign Worker Relationship Specialty Start Date End Date Jay Durham MD [address] [facility] [address] [place] [address] PCP - General INTERNAL MEDICINE 03/16/23 documented as of this encounter
== END 2024-08-16 08:07 | disposition home or self-care (01) ==
LOC: ANHIMG 08:10
PROVIDERS: PCP Internal Medicine; Visit Provider Nurse Practitioner Family
DX: M81.0 Age-related osteoporosis without current pathological fracture (principal); Z78.0 Asymptomatic menopausal state; Z12.31 Encounter for screening mammogram for malignant neoplasm of breast
CPT/HCPCS: 77063; 77067; 77080